=== PATIENT | female | born 1935 | race Caucasian/White ===

== ENCOUNTER 2016-12-29 18:07 | Observation (INO) ==
--- NOTE | 2016-12-29 18:17 | Emergency Department Report ---
Lower Extremity Injury HPI - General Chief Complaint: Extremity Injury, Lower Stated Complaint: r pelvic pain Time Seen by Provider: 12/29/16 18:11 Source: patient, EMS Mode of arrival: EMS Limitations: no limitations - History of Present Illness HPI Narrative: Patient was at the senior care, and she was trying to ambulate from a seated position to her wheelchair, and after 2 steps she became so weak that she couldn 't stand, and fell onto her right side. Patient denies ongoing weakness, stating that she normally is quite weak, but "staff at the senior care and get up to try to help my strength." Patient is complaining now of right lateral and posterior hip pain, but has no deformity of the hip. MD complaint: hip injury - Related Data Home Medications Medication Instructions Recorded Confirmed Doxazosin Mesylate [Cardura] 4 mg PO DAILY #0 09/23/08 12/29/16 Sertraline HCl 100 mg PO DAILY #0 09/23/08 12/29/16 Omeprazole 20 meq PO DAILY #0 09/18/10 12/29/16 Gabapentin 600 mg PO TID #0 05/14/12 12/29/16 Hyoscyamine Sulfate 1 tab PO DAILY #0 05/14/12 12/29/16 Lovastatin 20 mg PO DAILY #0 05/14/12 12/29/16 Pramipexole Di-HCl [Mirapex] 1 tab PO QID #0 05/14/12 12/29/16 Acetaminophen 650 mg PO QID #0 tab 12/08/14 12/29/16 Cholecalciferol (Vitamin D3) 1,000 unit PO DAILY #0 12/08/14 12/29/16 [Vitamin D3] Loratadine 10 mg PO DAILY #0 tab 12/08/14 12/29/16 Multivit-Min/Iron/Folic/Lutein 1 tab PO DAILY #0 12/08/14 12/29/16 [Centrum Silver Women Tablet] Nystatin Cream [Mycostatin] 1 applic TOP DAILY #0 12/08/14 12/29/16 Polyethylene Glycol 3350 [Miralax] 17 g PO DAILY #0 12/08/14 12/29/16 Tramadol HCl 50 mg PO TID #0 tab 12/08/14 12/29/16 Acetaminophen 325 mg PO Q4H PRN 12/29/16 12/29/16 Albuterol Inhaler [Ventolin Hfa 90 2 puff ORAL INH Q4H PRN 12/29/16 12/29/16 mcg/actuation] Bisacodyl Supp [Dulcolax] 10 mg RECTALLY DAILY PRN 12/29/16 12/29/16 CALCIUM CARBONATE Chewable [Tums] 500 mg PO PRN PRN 12/29/16 12/29/16 Carbidopa/Levodopa 25/100 mg 1 tab PO QID 12/29/16 12/29/16 [Sinemet] Fluticasone/Vilanterol Inhaler 1 puff INH HS 12/29/16 12/29/16 [Breo Ellipta 100-25 mcg Inhaler] Guaifenesin/Dextromethorphan 10 ml PO Q4H PRN 12/29/16 12/29/16 [Guaifenesin Dm Syrup] LORazepam [Ativan] 0.5 mg PO DAILY PRN 12/29/16 12/29/16 NIFEdipine [Nifedipine ER] 60 mg PO DAILY 12/29/16 12/29/16 Ondansetron HCl [Zofran] 4 mg PO Q6H PRN 12/29/16 12/29/16 Polyvinyl Alcohol [Artificial 1 drop EACH EYE BID PRN 12/29/16 12/29/16 Tears] Rivaroxaban [Xarelto] 20 mg PO DAILY 12/29/16 12/29/16 Saliva Substitute Combo No.9 1 dose MM BID PRN 12/29/16 12/29/16 [Biotene] Sertraline HCl [Zoloft] 50 mg PO DAILY 12/29/16 12/29/16 Tetrabenazine 12.5 mg PO BID 12/29/16 12/29/16 Tramadol [Ultram] 50 mg PO Q8H PRN 12/29/16 12/29/16 Triamterene/Hydrochlorothiazid 1 tab PO DAILY 12/29/16 12/29/16 [Dyazide 37.5-25 Capsule] Zinc Oxide 1 applic TP PRN PRN 12/29/16 12/29/16 cycloSPORINE [Restasis Multidose] 1 drop EACH EYE BID 12/29/16 12/29/16 Allergies Allergy/AdvReac Type Severity Reaction Status Date / Time naproxen [From Aleve] Allergy Unknown Verified 12/29/16 18:32 Penicillins Allergy Unknown Verified 12/29/16 18:31 propoxyphene Allergy Unknown Verified 12/29/16 18:31 Sulfa (Sulfonamide Allergy Unknown Verified 12/29/16 18:31 Antibiotics) codeine AdvReac Unknown NAUSEA AND Verified 12/29/16 18:31 VOMITING ibuprofen AdvReac Unknown HEARTBURN Verified 12/29/16 18:31 meloxicam AdvReac Unknown HEARTBURN Verified 12/29/16 18:31 sertraline HCl Allergy Unknown Uncoded 12/08/14 16:06 Review of Systems All systems: reviewed and negative except as stated PFSH Patient Stated Medical History Parkinson's Disease Yes Cataracts Yes Hypertension Yes Asthma Yes Bronchitis Yes Gastroesophageal Reflux Yes Disease Osteoarthritis Yes Clinic Medical History Anxiety (Acute Medical) Arthritis (Acute Medical) Asthma (Acute Medical) Chronic back pain (Acute Medical) Dyspepsia (Acute Medical) Fibromyalgia (Acute Medical) Gait abnormality (Acute Medical) HTN (hypertension) (Acute Medical) Heart burn (Acute Medical) Hyperlipidemia (Acute Medical) Lumbosacral spondylolysis (Acute Medical) Memory loss (Acute Medical) Osteoporosis (Acute Medical) Paralysis agitans (Acute Medical) Parkinson disease (Acute Medical) Tremor (Acute Medical) Surgical History: * hysterectomy - 1970. * gall bladder. * appendix. * right ankle. * benugn Tumor removed from ovary Family History: Family History Mother HTN (hypertension) High blood cholesterol Brother HTN (hypertension) - Social History Smoking status: Never smoker Physical Exam - Limitations Limitations: no limitations - General General appearance: alert, obese - Normal Exams: Head:: Normocephalic without trauma Eyes:: Pupils are PERRLA w/ EOMI, No scleral icterus, irritation, or foreign bodies noted ENMT:: No facial trauma, nasal exudates, pharyngeal erythema, or exudates are noted Neck:: Full range of motion, without adenopathy, JVD, bruits or thyromegaly Chest/Respirations:: Clear all gutierrez, with good airflow, and symmetry bilaterally Cardiovascular:: Regular rate and rhythm, without murmur or gallop, Pulses 2+ all extremities, capillary refill, <2 seconds all extremities Abdomen:: Bowel sounds positive, soft, non-tender, non-distended, no hepatosplenomegaly, masses or bruits noted Lymphatic:: No lymphadenopathy, or lymphedema noted Integumentary:: No rashes, hives, or bruising noted, hair and nails, without abnormality Neurological:: Patient is alert, and oriented, cranial nerves, motor/sensory/ cerebellar, exams w/o gross deficits, to observation Psychiatric:: Patient exhibits, appropriate attention, emotion and affect - Expanded Lower Extremity Exam 1 - Moderate diffuse tenderness without contusion or bony deformity 2 - 100 diffuse tenderness without ecchymosis or deformity Course Vital Signs Temperature 97.5 F 12/29/16 18:07 Pulse Rate 53 L 12/29/16 18:07 Respiratory Rate 16 12/29/16 18:07 Blood Pressure 116/58 12/29/16 18:07 Pulse Oximetry 94 12/29/16 18:07 Temperature 97.5 F 12/29/16 18:07 Pulse Rate 45 L 12/29/16 19:50 Respiratory Rate 16 12/29/16 18:07 Blood Pressure 127/65 12/29/16 19:50 Pulse Oximetry 97 12/29/16 19:50 Extremity Injury, Lower - MDM Narrative Medical decision making narrative: Initial x-rays of the pelvis and hip appear normal, however patient is unable to bear weight without significant pain in the posterior right pelvis/S eye region, and right lateral hip. Patient given Dilaudid 0.5 mg IV, CT pelvis/hip - initial read by virtual radiology states "small avulsion fractures arising from the lower aspect of the right pubic bone. ER physician review does not visualize anything on the CT scan that looks like acute fractures in the area of the patient's lateral and posterior pain however. Patient was found to be periodically bradycardic with pulse ranging from 48-61, although the patient was asymptomatic. EKG - shows atrial fibrillation with bradycardic rhythm at 48, quite irregular. CBC - n CMP - n Troponin- n Case discussed with Daniela NICOLE - admitted to Dr. Gamino's service for new onset atrial fibrillation with bradycardia, status post fall with mild ongoing hip pain, pain appears to be controlled with low doses of Dilaudid in the ER. - Lab Data Result diagrams: 12/29/16 18:56 12/29/16 18:56 Lab Results 12/29/16 12/29/16 12/29/16 Range/Units 18:55 18:56 18:56 WBC 8.6 (4.5-11.0) T/MM3 RBC 4.77 (4.00-5.20) M/MM3 Hgb 11.4 L (12-16) GM/DL Hct 37.2 (36-46) % MCV 78.0 L (80-100) UM3 MCH 23.9 L (26-34) UUG MCHC 30.6 L (31-37) GM/DL RDW Std Deviation 47.6 (36.9-50.2) FL Plt Count 243 (130-400) T/MM3 MPV 10.2 (9.4-12.4) UM3 Immature Gran % (Auto) 0.1 (0.0-0.5) % Neut % (Auto) 58.1 (33-66) % Lymph % (Auto) 34.3 (23-45) % Dup[place] % (Auto) 6.2 (0-9.0) % Eos % (Auto) 1.2 (0-4) % Baso % (Auto) 0.1 (0-2) % Neut # 5.0 (1.8-7.7) T/MM3 Lymph # 2.9 (1-4.8) T/MM3 Dupage # 0.5 (0-0.8) T/MM3 Eos # 0.1 (0-0.5) T/MM3 Baso # 0.0 (0-0.2) T/MM3 Abs Immat Gran (auto) 0.01 (0.00-0.03) T/MM3 Turbidity < 20 (0-20) Sodium 143 (134-144) MEQ/L Potassium 4.6 (3.6-5) MEQ/L Chloride 102 (98-107) MEQ/L Carbon Dioxide 30 (22-30) MEQ/L Anion Gap 11 (5-15) MEQ/L BUN 28.0 H (7-17) MG/DL Creatinine 0.8 (0.7-1.2) MG/DL GFR Calculation 69 BUN/Creatinine Ratio 35 H (6-26) RATIO Glucose 87 (65-110) MG/DL Calculated Osmolality 280 (261-280) MOSM/KG Calcium 9.3 (8.4-10.2) MG/DL Total Bilirubin 0.50 (0.20-1.30) MG/DL Conjugated Bilirubin 0.00 (0.00-0.30) MG/DL Unconjugated Bilirubin 0.00 (0.00-11.10) MG/DL Icterus Index < 2 (0-7) AST 22 (14-36) U/L ALT 18 (9-52) U/L Alkaline Phosphatase 57 (38-126) U/L Troponin I < 0.012 (0-0.12) ng/ml Total Protein 7.0 (6.3-8.2) G/DL Albumin 4.3 (3.5-5.0) G/DL Globulin 2.7 (2.4-3.6) G/DL Albumin/Globulin Ratio 1.6 (1.1-2.2) RATIO Specimen Hemolysis < 15 < 15 (0-25) Disposition Clinical Impression: Atrial fibrillation with slow ventricular response Disposition: [facility] [place] Condition: Stable Prescriptions: No Action Lovastatin 20 mg PO DAILY #0 Pramipexole Di-HCl [Mirapex] 1 tab PO QID #0 Multivit-Min/Iron/Folic/Lutein [Centrum Silver Women Tablet] 1 tab PO DAILY # 0 Acetaminophen 650 mg PO QID #0 tab Tramadol HCl 50 mg PO TID #0 tab Cholecalciferol (Vitamin D3) [Vitamin D3] 1,000 unit PO DAILY #0 Nystatin Cream [Mycostatin] 1 applic TOP DAILY #0 Saliva Substitute Combo No.9 [Biotene] 1 dose MM BID PRN PRN Reason: Prn Orders Guaifenesin/Dextromethorphan [Guaifenesin Dm Syrup] 10 ml PO Q4H PRN PRN Reason: Cough Bisacodyl Supp [Dulcolax] 10 mg RECTALLY DAILY PRN PRN Reason: Constipation LORazepam [Ativan] 0.5 mg PO DAILY PRN PRN Reason: Anxiety Ondansetron HCl [Zofran] 4 mg PO Q6H PRN PRN Reason: Nausea Tramadol [Ultram] 50 mg PO Q8H PRN PRN Reason: Pain Acetaminophen 325 mg PO Q4H PRN PRN Reason: Pain Albuterol Inhaler [Ventolin Hfa 90 mcg/actuation] 2 puff ORAL INH Q4H PRN PRN Reason: Shortness Of Air/Wheezing Fluticasone/Vilanterol Inhaler [Breo Ellipta 100-25 mcg Inhaler] 1 puff INH HS cycloSPORINE [Restasis Multidose] 1 drop EACH EYE BID Rivaroxaban [Xarelto] 20 mg PO DAILY NIFEdipine [Nifedipine ER] 60 mg PO DAILY Sertraline HCl [Zoloft] 50 mg PO DAILY Carbidopa/Levodopa 25/100 mg [Sinemet] 1 tab PO QID Zinc Oxide 1 applic TP PRN PRN PRN Reason: Prn Orders Doxazosin Mesylate [Cardura] 4 mg PO DAILY #0 Sertraline HCl 100 mg PO DAILY #0 Omeprazole 20 meq PO DAILY #0 Hyoscyamine Sulfate 1 tab PO DAILY #0 Gabapentin 600 mg PO TID #0 Polyethylene Glycol 3350 [Miralax] 17 g PO DAILY #0 Loratadine 10 mg PO DAILY #0 tab Polyvinyl Alcohol [Artificial Tears] 1 drop EACH EYE BID PRN PRN Reason: Dry Eyes CALCIUM CARBONATE Chewable [Tums] 500 mg PO PRN PRN PRN Reason: Prn Orders Triamterene/Hydrochlorothiazid [Dyazide 37.5-25 Capsule] 1 tab PO DAILY Tetrabenazine 12.5 mg PO BID Referrals: Peter Pollard MD [Family Provider] - - Seen By: physician
[2016-12-29] MEDS ORDERED: HYDROMORPHONE 2 MG/ML INJECTION IVP ONE (18:48)
[2016-12-29] MEDS: SALINE FLUSH 10ml SYRINGE IVF PRN (19:00)
[2016-12-29] MEDS ORDERED: ONDANSETRON 4 MG TABLET PO PRN (21:16)
[2016-12-29] MEDS ORDERED: GUAIFENESIN/DM 5ml ORAL LIQUID PO PRN (21:16)
[2016-12-29] MEDS ORDERED: FALL RISK - PHARMACY CONSULT MC PRN (22:50)
[2016-12-29 22:52] VITALS: BMI 36.6
[2016-12-30] MEDS: ACETAMINOPHEN 325 MG TABLET PO SCH ×5 (00:20→21:21)
--- NOTE | 2016-12-30 07:49 | CT Scan Report ---
EXAM: CT hip RT wo con LOCATION OF DICTATION: [place] HISTORY: right posterior hip and sacral pain after fall COMPARISON: No prior studies available for comparison. TECHNIQUE: Multiple contiguous axial images were obtained of the pelvis and right hip without contrast. Coronal and sagittal reformatted images were utilized. FINDINGS: There is a small sliver of bone demonstrated about the ventral aspect of the right pubic bone which could simply represent a small osteophyte though a small avulsion fracture is not entirely excluded. There is normal and the right hip joint which demonstrates mild osteoarthrosis. No obvious hip fracture deformities. Moderate spondylosis demonstrated in the lower lumbar spine. Visualized abdominal viscera is unremarkable. IMPRESSION: 1. Small linear bone density demonstrated along the ventral aspect of the right pubic bone could represent a small osteophyte though a small avulsion fracture is not entirely excluded. 2. Mild osteoarthrosis the right hip joint and moderate spondylosis of the lower lumbar spine. 3. No evidence for significant malalignment. .
--- NOTE | 2016-12-30 08:07 | XRay Report ---
EXAM: XR pelvis w/ 2 view RT hip LOCATION OF DICTATION: [place] HISTORY: fall, hip pain, right COMPARISON: No prior studies available for comparison. FINDINGS: There is normal alignment of the right and left hip joints. There is no dislocation or subluxation. There is normal osseous mineralization. The ilioischial and iliopectineal lines are intact. The SI joints are well-corticated. Mild/moderate degenerative joint disease about the right and left hip joints. Moderate spondylosis in the lower lumbar spine. IMPRESSION: 1. No malalignment or obvious fracture. Please refer to CT right hip for further discussion. 2. There is mild to moderate osteoarthrosis of the right and left hip joints and moderate spondylosis of the visualized lower lumbar spine. .
[2016-12-30] MEDS: OMEPRAZOLE 20 MG CAPSULE PO SCH (08:30)
[2016-12-30] MEDS: SERTRALINE 100 MG TABLET PO SCH (09:00)
[2016-12-30] MEDS: TRIAMTERENE/HCTZ 37.5 MG-25 MG TABLET PO SCH (09:00)
[2016-12-30] MEDS: SERTRALINE 50 MG TABLET PO SCH (09:00)
[2016-12-30] MEDS ORDERED: RIVAROXABAN 20 MG TABLET PO SCH (09:00)
[2016-12-30] MEDS: HYOSCYAMINE 0.125 MG ORAL TABLET PO SCH (09:00)
[2016-12-30] MEDS: GABAPENTIN 600 MG TABLET PO SCH ×3 (09:00→21:17)
--- NOTE | 2016-12-30 11:50 | Cardiology History & Physical ---
History of Present Illness Chief complaint: pelvic pain HPI: Kiesha is an 81 year old female who is well known to Dr. Chavez with a history of paroxysmal atrial fibrillation, HTN, HLD and Parkinson's disease who was at the senior care and trying to ambulate from a seated position to her wheelchair , and after 2 steps she became so tired that she couldn't stand, and fell onto her right side. She reported that she normally is quite weak, but she was complaining of right lateral and posterior hip pain, but has no deformity of the hip. In the ED initial x-rays of the pelvis and hip appear normal, however patient was unable to bear weight without significant pain in the posterior right pelvis /S eye region, and right lateral hip. CT pelvis/hip read by virtual radiology states "small avulsion fractures arising from the lower aspect of the right pubic bone. ER physician's review does not visualize anything on the CT scan that looks like acute fractures in the area of the patient's lateral and posterior pain however. She was found to be periodically bradycardic with pulse ranging from 48-61, although the patient was asymptomatic. EKG revealed A Fib with slow ventricular rate of 48. She was admitted to Dr. Chavez's service for observation. Review of Systems - Constitutional Constitutional: Present: weakness. Absent: chills, fever(s) - EENMT Eyes: Absent: change in vision Balance: Absent: vertigo Mouth/Throat: Absent: sore throat - Cardiovascular Cardiovascular: Absent: chest pain, palpitations, syncope, dyspnea on exertion, orthopnea - Respiratory Respiratory: Absent: cough, dyspnea, dyspnea on exertion - Gastrointestinal Gastrointestinal: Absent: diarrhea, nausea, vomiting - Genitourinary Genitourinary: Absent: dysuria - Musculoskeletal Musculoskeletal: Present: abnormal gait (parkinson's disease), limited range of motion. Absent: deformity - Integumentary/Breasts Integumentary: Absent: rash - Neurological Neurological: Present: dizziness (at times) - Endocrine Endocrine: Absent: palpitations PFSH Patient Stated Medical History Parkinson's Disease Yes Cataracts Yes Hypertension Yes Asthma Yes Bronchitis Yes Gastroesophageal Reflux Yes Disease Hx Incontinence Yes: stress Osteoarthritis Yes Anesthesia Reactions Yes: Nausea Depression Yes Clinic Medical History Anxiety (Acute Medical) Arthritis (Acute Medical) Asthma (Acute Medical) Chronic back pain (Acute Medical) Dyspepsia (Acute Medical) Fibromyalgia (Acute Medical) Gait abnormality (Acute Medical) HTN (hypertension) (Acute Medical) Heart burn (Acute Medical) Hyperlipidemia (Acute Medical) Lumbosacral spondylolysis (Acute Medical) Memory loss (Acute Medical) Osteoporosis (Acute Medical) Paralysis agitans (Acute Medical) Parkinson disease (Acute Medical) Tremor (Acute Medical) Surgical History: * hysterectomy - 1970. * gall bladder. * appendix. * right ankle. * benugn Tumor removed from ovary Family History: Family History Mother HTN (hypertension) High blood cholesterol Brother HTN (hypertension) - Social History Smoking status: Never smoker Substance use type: does not use Alcohol intake frequency: does not drink Housing: senior care Current occupational status: disabled Current residence: Assisted Medications Home Medications Medication Instructions Recorded Confirmed Type Doxazosin Mesylate [Cardura] 4 mg PO DAILY #0 09/23/08 12/29/16 History Sertraline HCl 100 mg PO DAILY #0 09/23/08 12/29/16 History Omeprazole 20 meq PO DAILY #0 09/18/10 12/29/16 History Gabapentin 600 mg PO TID #0 05/14/12 12/29/16 History Hyoscyamine Sulfate 1 tab PO DAILY #0 05/14/12 12/29/16 History Lovastatin 20 mg PO DAILY #0 05/14/12 12/29/16 History Pramipexole Di-HCl [Mirapex] 1 tab PO QID #0 05/14/12 12/29/16 History Acetaminophen 650 mg PO QID #0 tab 12/08/14 12/29/16 History Cholecalciferol (Vitamin D3) 1,000 unit PO DAILY #0 12/08/14 12/29/16 History [Vitamin D3] Loratadine 10 mg PO DAILY #0 tab 12/08/14 12/29/16 History Multivit-Min/Iron/Folic/Lutein 1 tab PO DAILY #0 12/08/14 12/29/16 History [Centrum Silver Women Tablet] Nystatin Cream [Mycostatin] 1 applic TOP DAILY #0 12/08/14 12/29/16 History Polyethylene Glycol 3350 [Miralax] 17 g PO DAILY #0 12/08/14 12/29/16 History Tramadol HCl 50 mg PO TID #0 tab 12/08/14 12/29/16 History Acetaminophen 325 mg PO Q4H PRN 12/29/16 12/29/16 History Albuterol Inhaler [Ventolin Hfa 90 2 puff ORAL INH Q4H PRN 12/29/16 12/29/16 History mcg/actuation] Bisacodyl Supp [Dulcolax] 10 mg RECTALLY DAILY PRN 12/29/16 12/29/16 History CALCIUM CARBONATE Chewable [Tums] 500 mg PO PRN PRN 12/29/16 12/29/16 History Carbidopa/Levodopa 25/100 mg 1 tab PO QID 12/29/16 12/29/16 History [Sinemet] Fluticasone/Vilanterol Inhaler 1 puff INH HS 12/29/16 12/29/16 History [Breo Ellipta 100-25 mcg Inhaler] Guaifenesin/Dextromethorphan 10 ml PO Q4H PRN 12/29/16 12/29/16 History [Guaifenesin Dm Syrup] LORazepam [Ativan] 0.5 mg PO DAILY PRN 12/29/16 12/29/16 History NIFEdipine [Nifedipine ER] 60 mg PO DAILY 12/29/16 12/29/16 History Ondansetron HCl [Zofran] 4 mg PO Q6H PRN 12/29/16 12/29/16 History Polyvinyl Alcohol [Artificial 1 drop EACH EYE BID PRN 12/29/16 12/29/16 History Tears] Rivaroxaban [Xarelto] 20 mg PO DAILY 12/29/16 12/29/16 History Saliva Substitute Combo No.9 1 dose MM BID PRN 12/29/16 12/29/16 History [Biotene] Sertraline HCl [Zoloft] 50 mg PO DAILY 12/29/16 12/29/16 History Tetrabenazine 12.5 mg PO BID 12/29/16 12/29/16 History Tramadol [Ultram] 50 mg PO Q8H PRN 12/29/16 12/29/16 History Triamterene/Hydrochlorothiazid 1 tab PO DAILY 12/29/16 12/29/16 History [Dyazide 37.5-25 Capsule] Zinc Oxide 1 applic TP PRN PRN 12/29/16 12/29/16 History cycloSPORINE [Restasis Multidose] 1 drop EACH EYE BID 12/29/16 12/29/16 History Allergies Allergy/AdvReac Type Severity Reaction Status Date / Time naproxen [From Aleve] Allergy Unknown Verified 12/29/16 18:32 Penicillins Allergy Unknown Verified 12/29/16 18:31 propoxyphene Allergy Unknown Verified 12/29/16 18:31 Sulfa (Sulfonamide Allergy Unknown Verified 12/29/16 18:31 Antibiotics) codeine AdvReac Unknown NAUSEA AND Verified 12/29/16 18:31 VOMITING ibuprofen AdvReac Unknown HEARTBURN Verified 12/29/16 18:31 meloxicam AdvReac Unknown HEARTBURN Verified 12/29/16 18:31 sertraline HCl Allergy Unknown Uncoded 12/08/14 16:06 Exam Vital signs: Temperature 97 F 12/30/16 07:39 Pulse Rate 56 L 12/30/16 10:16 Respiratory Rate 18 12/30/16 07:39 Blood Pressure 142/66 H 12/30/16 07:39 Pulse Oximetry 96 12/30/16 07:39 Oxygen Delivery Method Room Air,Nasal Cannula Oxygen Flow Rate 2 - Constitutional no acute distress, obese, cooperative - Routine HEENT Exam Head: Present: normocephalic ENT: Present: mucous membranes moist - Routine Neck Exam Absent: JVD, carotid bruit - Routine Chest/Breast/Axilla Exam Chest wall: Absent: tenderness - Routine Respiratory Exam Present: CTA bilaterally. Absent: rales, wheezes - Routine Cardiovascular Exam Present: bradycardia. Absent: murmur (I/), irregular rhythm, JVD - Routine Abdominal Exam Present: soft, normoactive bowel sounds - Routine Extremities Exam Present: edema (calixto LE 2+) - Routine Skin Exam Absent: rash - Routine Neurological Exam Present: alert, oriented X3 - Routine Psychiatric Exam Present: normal affect, normal thought process Results 12/29/16 18:56 12/29/16 18:56 Intake and Output 12/29/16 12/30/16 12/30/16 22:59 06:59 14:59 Intake Total 200 / 200 Output Total 200 / 200 Balance 200 / 200 -200 / -200 Intake: Oral 200 / 200 Output: Urine 200 / 200 Other: # Voids 1 # Bowel Movements 1 Weight 200 lb 6.403 oz 200 lb 9.93 oz Patient Weight 12/31/16 06:59 Weight 200 lb 9.93 oz Laboratory Results - last 48 hr 12/29/16 12/29/16 12/29/16 18:55 18:56 18:56 WBC 8.6 RBC 4.77 Hgb 11.4 L Hct 37.2 MCV 78.0 L MCH 23.9 L MCHC 30.6 L RDW Std Deviation 47.6 Plt Count 243 MPV 10.2 Immature Gran % (Auto) 0.1 Neut % (Auto) 58.1 Lymph % (Auto) 34.3 Pratt % (Auto) 6.2 Eos % (Auto) 1.2 Baso % (Auto) 0.1 Neut # 5.0 Lymph # 2.9 Pratt # 0.5 Eos # 0.1 Baso # 0.0 Abs Immat Gran (auto) 0.01 Turbidity < 20 Sodium 143 Potassium 4.6 Chloride 102 Carbon Dioxide 30 Anion Gap 11 BUN 28.0 H Creatinine 0.8 GFR Calculation 69 BUN/Creatinine Ratio 35 H Glucose 87 Calculated Osmolality 280 Calcium 9.3 Total Bilirubin 0.50 Conjugated Bilirubin 0.00 Unconjugated Bilirubin 0.00 Icterus Index < 2 AST 22 ALT 18 Alkaline Phosphatase 57 Troponin I < 0.012 Total Protein 7.0 Albumin 4.3 Globulin 2.7 Albumin/Globulin Ratio 1.6 Specimen Hemolysis < 15 < 15 Ur Collection Type Urine Color Urine Clarity Urine pH Ur Specific [place] Urine Protein Urine Glucose (UA) Urine Ketones Urine Occult Blood Urine Nitrate Urine Bilirubin Urine Urobilinogen Ur Leukocyte Esterase Urine RBC Urine WBC Urine WBC Clumps Ur Squamous Epith Cells Ur Renal Epithelial Cell Urine Bacteria Ur Culture Indicated? 12/29/16 21:10 WBC RBC Hgb Hct MCV MCH MCHC RDW Std Deviation Plt Count MPV Immature Gran % (Auto) Neut % (Auto) Lymph % (Auto) Pratt % (Auto) Eos % (Auto) Baso % (Auto) Neut # Lymph # Pratt # Eos # Baso # Abs Immat Gran (auto) Turbidity Sodium Potassium Chloride Carbon Dioxide Anion Gap BUN Creatinine GFR Calculation BUN/Creatinine Ratio Glucose Calculated Osmolality Calcium Total Bilirubin Conjugated Bilirubin Unconjugated Bilirubin Icterus Index AST ALT Alkaline Phosphatase Troponin I Total Protein Albumin Globulin Albumin/Globulin Ratio Specimen Hemolysis Ur Collection Type Urine, catheter Urine Color Yellow Urine Clarity Cloudy Urine pH 5.0 Ur Specific [place] 1.025 Urine Protein Negative Urine Glucose (UA) Negative Urine Ketones Trace A Urine Occult Blood Negative Urine Nitrate Positive A Urine Bilirubin Negative Urine Urobilinogen 0.2 Ur Leukocyte Esterase 2+ A Urine RBC 1-3 Urine WBC 10-20 H Urine WBC Clumps Few Ur Squamous Epith Cells 0-5 Ur Renal Epithelial Cell 0-1 Urine Bacteria 4+ H Ur Culture Indicated? Cult reflexed &setup - Imaging and Cardiology EKG results: image reviewed Imaging & Cardiology Narrative: Date of Exam: 12/29/16 Ordering Provider: John Bob MD Type of Exam(s): XR pelvis w/ 2 view RT hip Reason for Exam(s): fall, hip pain, right EXAM: XR pelvis w/ 2 view RT hip LOCATION OF DICTATION: [place] HISTORY: fall, hip pain, right COMPARISON: No prior studies available for comparison. FINDINGS: There is normal alignment of the right and left hip joints. There is no dislocation or subluxation. There is normal osseous mineralization. The ilioischial and iliopectineal lines are intact. The SI joints are well-corticated. Mild/moderate degenerative joint disease about the right and left hip joints. Moderate spondylosis in the lower lumbar spine. IMPRESSION: 1. No malalignment or obvious fracture. Please refer to CT right hip for further discussion. 2. There is mild to moderate osteoarthrosis of the right and left hip joints and moderate spondylosis of the visualized lower lumbar spine. 12/30/16 12:11 12/30/16 12:11 Date of Exam: 12/29/16 Ordering Provider: John Bob MD Type of Exam(s): CT hip RT wo con Reason for Exam(s): right posterior hip and sacral pain after fall EXAM: CT hip RT wo con LOCATION OF DICTATION: [place] HISTORY: right posterior hip and sacral pain after fall COMPARISON: No prior studies available for comparison. TECHNIQUE: Multiple contiguous axial images were obtained of the pelvis and right hip without contrast. Coronal and sagittal reformatted images were utilized. FINDINGS: There is a small sliver of bone demonstrated about the ventral aspect of the right pubic bone which could simply represent a small osteophyte though a small avulsion fracture is not entirely excluded. There is normal and the right hip joint which demonstrates mild osteoarthrosis. No obvious hip fracture deformities. Moderate spondylosis demonstrated in the lower lumbar spine. Visualized abdominal viscera is unremarkable. IMPRESSION: 1. Small linear bone density demonstrated along the ventral aspect of the right pubic bone could represent a small osteophyte though a small avulsion fracture is not entirely excluded. 2. Mild osteoarthrosis the right hip joint and moderate spondylosis of the lower lumbar spine. 3. No evidence for significant malalignment. EKG interpretations - EKG EKG shows: bradycardia, atrial fibrillation - Blocks, axis, hypertrophy, ST abn AV and intraventricular conduction: left bundle branch block (fixed/intermittent , complete/incomplete) Hospital Course This is a general summary of the patient's hospital course. For more details refer to the complete medical record. Time spent with patient: 25 - 35 minutes DVT Prophylaxis: Xarelto Assessment and Plan (1) Juanpablo-tachy syndrome Current visit: Yes Status: Acute Sustained Bradycardia in the 35 range for hours last evening. Is not on BB or other med to cause bradycardia. In addition has a LBBB. Continue to hold Xarelto and plan PPM insertion tomorrow afternoon. (2) Atrial fibrillation with slow ventricular response Current visit: Yes Status: Chronic Rate slow. Chronic anticoagulation on Xarelto, holding for PPM insertion tomorrow afternoon (3) Essential (primary) hypertension Current visit: Yes Status: Chronic well controlled on current therapy (4) Mixed hyperlipidemia Current visit: Yes Status: Acute takes Lovastatin (5) Parkinson disease Current visit: Yes Status: Acute - Attestation Attestation Narrative: 12/31/16 13:40 Recommendation After examining the patient I agree with the above assessment. I am involved in the formulation of the patient's plan of care. Sepsis Assessment - Evaluation Sepsis screening result: No Definite Risk
[2016-12-30] MEDS ORDERED: PNEUMOCOCCAL 13 VACCINE 0.5ml INJECTION IM ONE (15:19)
[2016-12-30] MEDS: TRAMADOL 50 MG TABLET PO SCH ×3 (15:29→21:20)
[2016-12-30] MEDS: PRAMIPEXOLE 1 MG TABLET PO SCH ×4 (15:39→21:18)
[2016-12-30] MEDS: SALINE FLUSH 10ml SYRINGE IVF PRN (21:17)
[2016-12-30] MEDS: LOVASTATIN 20 MG TABLET PO SCH (21:18)
[2016-12-30] MEDS: FLUTICASONE/VILANTEROL 100/25mcg INHALER ORAL INH SCH ×2 (22:09→22:36)
[2016-12-30] MEDS: LORazepam 0.5 MG TABLET PO PRN (22:50)
[2016-12-31] MEDS: OMEPRAZOLE 20 MG CAPSULE PO SCH (05:42)
[2016-12-31] MEDS: TRAMADOL 50 MG TABLET PO SCH ×4 (06:01→20:12)
[2016-12-31] MEDS ORDERED: STERILE WATER FOR INJ 20ML 20 ML ONE (06:54)
[2016-12-31] MEDS ORDERED: SALINE FLUSH 10ml SYRINGE ONE ×2 (06:54→08:05)
[2016-12-31] MEDS ORDERED: BACITRACIN 50,000 UNIT INJECTION ONE (06:55)
[2016-12-31] MEDS ORDERED: LIDOCAINE 1% (10mg/ml) 30ml SDV INJ ONE ×2 (06:55→08:07)
[2016-12-31] MEDS ORDERED: MIDAZOLAM 2mg/2ml INJECTION ONE (07:03)
[2016-12-31] MEDS ORDERED: FentaNYL 100 MCG/2 ML INJECTION ONE (07:03)
[2016-12-31] MEDS ORDERED: ONDANSETRON 4 MG/2 ML INJECTION ONE (07:35)
[2016-12-31] MEDS: PRAMIPEXOLE 1 MG TABLET PO SCH ×4 (10:03→20:13)
[2016-12-31] MEDS: GABAPENTIN 600 MG TABLET PO SCH ×3 (10:03→20:13)
[2016-12-31] MEDS: SERTRALINE 100 MG TABLET PO SCH (10:03)
[2016-12-31] MEDS: TRIAMTERENE/HCTZ 37.5 MG-25 MG TABLET PO SCH (10:03)
[2016-12-31] MEDS: SOTALOL 80 MG TABLET PO SCH ×2 (10:04→17:58)
[2016-12-31] MEDS: HYOSCYAMINE 0.125 MG ORAL TABLET PO SCH (10:07)
[2016-12-31] MEDS: ACETAMINOPHEN 325 MG TABLET PO SCH ×4 (10:10→20:13)
[2016-12-31] MEDS: SERTRALINE 50 MG TABLET PO SCH (10:10)
[2016-12-31] MEDS ORDERED: SALINE FLUSH 10ml SYRINGE IVF PRN (11:45)
--- NOTE | 2016-12-31 12:36 | XRay Report ---
Indication: PPM PROCEDURE: XR chest 1V: Encounter: Initial Comparison: May 14, 2012 Findings: New left dual lead cardiac pacemaker with right atrial and right ventricular leads. No pneumothorax. There is a double density behind the heart which could represent a hiatal hernia or left atrial enlargement. Lungs are otherwise clear. Cardiac silhouette is mildly enlarged but unchanged. Mediastinal contours are stable. Impression: New left cardiac pacemaker without evidence of immediate complication. .
[2016-12-31] MEDS: Oxycodone/Acetaminophen 5/325 1 TAB PO PRN ×2 (16:55→23:51)
[2016-12-31] MEDS: SALINE FLUSH 10ml SYRINGE IVF PRN ×2 (19:17→23:53)
[2016-12-31] MEDS ORDERED: NS FLUSH BAG 500ml IV PRN (19:18)
[2016-12-31] MEDS: LOVASTATIN 20 MG TABLET PO SCH (20:13)
[2016-12-31] MEDS: FLUTICASONE/VILANTEROL 100/25mcg INHALER ORAL INH SCH (21:01)
[2016-12-31] MEDS: CALCIUM CARBONATE Chewable 500mg TABLET PO PRN (21:02)
[2017-01-01] MEDS: LORazepam 0.5 MG TABLET PO PRN (00:23)
[2017-01-01 03:34] VITALS: TEMP 96.9
[2017-01-01] MEDS: Oxycodone/Acetaminophen 5/325 1 TAB PO PRN (04:18)
[2017-01-01] MEDS: SOTALOL 80 MG TABLET PO SCH (05:52)
[2017-01-01] MEDS: OMEPRAZOLE 20 MG CAPSULE PO SCH (05:52)
[2017-01-01 08:11] VITALS: BP 151/73; PULSE 60
[2017-01-01] MEDS: CALCIUM CARBONATE Chewable 500mg TABLET PO PRN (08:16)
--- NOTE | 2017-01-01 08:41 | XRay Report ---
INDICATION: PPM PROCEDURE: CHEST 2-VIEWS UPRIGHT (PA & LAT) Encounter: Initial COMPARISON: December 31, 2016 FINDINGS: Left-sided dual-lead cardiac pacemaker appears stable. No visible pneumothorax. Lungs are unchanged in appearance. Heart size and mediastinal contours are stable. Hiatal hernia. Impression: Stable appearance of the left pacemaker. .
[2017-01-01] MEDS ORDERED: MINOCYCLINE 100 MG CAPSULE PO SCH (09:00)
[2017-01-01] MEDS: TRIAMTERENE/HCTZ 37.5 MG-25 MG TABLET PO SCH (09:10)
[2017-01-01] MEDS: HYOSCYAMINE 0.125 MG ORAL TABLET PO SCH (09:10)
[2017-01-01] MEDS: SERTRALINE 50 MG TABLET PO SCH (09:11)
[2017-01-01] MEDS: TRAMADOL 50 MG TABLET PO SCH ×2 (09:11→14:27)
[2017-01-01] MEDS: PRAMIPEXOLE 1 MG TABLET PO SCH ×2 (09:11→13:27)
[2017-01-01] MEDS: SERTRALINE 100 MG TABLET PO SCH (09:11)
[2017-01-01] MEDS: ACETAMINOPHEN 325 MG TABLET PO SCH ×2 (09:11→13:27)
[2017-01-01] MEDS: GABAPENTIN 600 MG TABLET PO SCH ×2 (09:11→14:27)
--- NOTE | 2017-01-01 10:40 | Discharge Summary ---
<Patti Kruse - Last Filed: 01/01/17 13:26> Discharge Information Date of admission: 12/31/16 11:49 Anticipated date of discharge: 01/01/17 Attending Physician: Phillip Chavez MD Primary care physician: Peter Pollard MD - Discharge Diagnosis Discharge Diagnosis: Juanpablo-tachy syndrome, AFib - Procedures Procedures: Insertion of permanent pacemaker - Laboratory Labs: 01/01/17 04:52 01/01/17 04:52 Laboratory Results - last 48 hr 01/01/17 01/01/17 04:52 04:52 WBC 8.1 RBC 4.61 Hgb 10.8 L Hct 36.5 MCV 79.2 L MCH 23.4 L MCHC 29.6 L RDW Std Deviation 48.2 Plt Count 204 MPV 9.7 Immature Gran % (Auto) 0.2 Neut % (Auto) 73.3 H Lymph % (Auto) 17.2 L [place] % (Auto) 7.4 Eos % (Auto) 1.8 Baso % (Auto) 0.1 Neut # 5.9 Lymph # 1.4 [place] # 0.6 Eos # 0.2 Baso # 0.0 Abs Immat Gran (auto) 0.02 Turbidity < 20 Sodium 140 Potassium 3.8 Chloride 100 Carbon Dioxide 32 H Anion Gap 8 BUN 22.0 H Creatinine 0.8 GFR Calculation 69 BUN/Creatinine Ratio 28 H Glucose 92 Calculated Osmolality 272 Calcium 9.0 Icterus Index < 2 Specimen Hemolysis < 15 Acetaminophen (Tylenol) 650 mg PO QID REPLACED BY [facility] Last Admin: 01/01/17 09:11 Dose: 650 mg Albuterol Sulfate (Ventolin Hfa) 2 puff ORAL INH Q4H PRN PRN Reason: Shortness of air/wheezing Calcium Carbonate (Tums) 500 mg PO PRN PRN PRN Reason: PRN orders Last Admin: 01/01/17 08:16 Dose: 500 mg Carbidopa/Levodopa (Sinemet) 1 tab PO QID REPLACED BY [facility] Last Admin: 01/01/17 09:11 Dose: 1 tab Fluticasone/Vilanterol (Breo Ellipta Inhaler) 1 puff ORAL INH HS REPLACED BY [facility] Last Admin: 12/31/16 21:01 Dose: 1 puff Gabapentin (Neurontin) 600 mg PO TID REPLACED BY [facility] Last Admin: 01/01/17 09:11 Dose: 600 mg Guaifenesin/Dextromethorphan (Robitussin Dm) 10 ml PO Q4H PRN PRN Reason: Cough Hyoscyamine (Levsin) 0.125 mg PO DAILY REPLACED BY [facility] Last Admin: 01/01/17 09:10 Dose: 0.125 mg Lorazepam (Ativan) 0.5 mg PO DAILY PRN PRN Reason: Anxiety Last Admin: 01/01/17 00:23 Dose: 0.5 mg Lovastatin (Mevacor) 20 mg PO HS REPLACED BY [facility] Last Admin: 12/31/16 20:13 Dose: 20 mg Minocycline HCl (Minocin) 100 mg PO BID REPLACED BY [facility] Last Admin: 01/01/17 09:10 Dose: 100 mg Nifedipine (Procardia Xl) 60 mg PO DAILY REPLACED BY [facility] Last Admin: 01/01/17 09:10 Dose: 60 mg Tetrabenazine 12.5 (Mg) 12.5 mg PO BID REPLACED BY [facility] Last Admin: 01/01/17 09:12 Dose: 12.5 mg Omeprazole (Prilosec) 20 mg PO ACB REPLACED BY [facility] Last Admin: 01/01/17 05:52 Dose: 20 mg Ondansetron HCl (Zofran Po) 4 mg PO Q6H PRN PRN Reason: Nausea Oxycodone/Acetaminophen (Percocet 5/325) 1 tab PO Q4H PRN PRN Reason: Pain Last Admin: 01/01/17 04:18 Dose: 1 tab Pramipexole Dihydrochloride (Mirapex) 1.5 mg PO QID REPLACED BY [facility] Last Admin: 01/01/17 09:11 Dose: 1.5 mg Sertraline HCl (Zoloft) 100 mg PO DAILY REPLACED BY [facility] Last Admin: 01/01/17 09:11 Dose: 100 mg Sertraline HCl (Zoloft) 50 mg PO DAILY REPLACED BY [facility] Last Admin: 01/01/17 09:11 Dose: 50 mg Sodium Chloride (Iv Flush) 10 - 80 ml IVF PRN PRN PRN Reason: Flushing Last Admin: 12/31/16 23:53 Dose: 10 ml Sodium Chloride (Iv Flush) 10 - 80 ml IVF PRN PRN PRN Reason: Flushing Sodium Chloride (Normal Saline) 500 ml IV PRN PRN Sotalol HCl (Betapace) 40 mg PO ACBID REPLACED BY [facility] Last Admin: 01/01/17 05:52 Dose: 40 mg Tramadol HCl (Ultram) 50 mg PO TID REPLACED BY [facility] Last Admin: 01/01/17 09:11 Dose: 50 mg Triamterene/HCTZ (Maxzide-25 Eqv) 1 tab PO DAILY NAYELI Last Admin: 01/01/17 09:10 Dose: 1 tab - Radiology Radiology: Date of Exam: 01/01/17 Ordering Provider: Phillip Chavez MD Type of Exam(s): XR chest 2V Reason for Exam(s): PPM INDICATION: PPM PROCEDURE: CHEST 2-VIEWS UPRIGHT (PA & LAT) Encounter: Initial COMPARISON: December 31, 2016 FINDINGS: Left-sided dual-lead cardiac pacemaker appears stable. No visible pneumothorax. Lungs are unchanged in appearance. Heart size and mediastinal contours are stable. Hiatal hernia. Impression: Stable appearance of the left pacemaker. Date of Exam: 12/31/16 Ordering Provider: Phillip Chavez MD Type of Exam(s): XR chest 1V Reason for Exam(s): PPM Indication: PPM PROCEDURE: XR chest 1V: Encounter: Initial Comparison: May 14, 2012 Findings: New left dual lead cardiac pacemaker with right atrial and right ventricular leads. No pneumothorax. There is a double density behind the heart which could represent a hiatal hernia or left atrial enlargement. Lungs are otherwise clear. Cardiac silhouette is mildly enlarged but unchanged. Mediastinal contours are stable. Impression: New left cardiac pacemaker without evidence of immediate complication. History of Present Illness HPI: Kiesha is an 81 year old female who is well known to Dr. Chavez with a history of paroxysmal atrial fibrillation, HTN, HLD and Parkinson's disease who [facility] and trying to ambulate from a seated position to her wheelchair , and after 2 steps she became so tired that she couldn't stand, and fell onto her right side. She reported that she normally is quite weak, but she was complaining of right lateral and posterior hip pain, but has no deformity of the hip. In the ED initial x-rays of the pelvis and hip appear normal, however patient was unable to bear weight without significant pain in the posterior right pelvis /S eye region, and right lateral hip. CT pelvis/hip read by virtual radiology states "small avulsion fractures arising from the lower aspect of the right pubic bone. ER physician's review does not visualize anything on the CT scan that looks like acute fractures in the area of the patient's lateral and posterior pain however. She was found to be periodically bradycardic with pulse ranging from 48-61, although the patient was asymptomatic. EKG revealed A Fib with slow ventricular rate of 48. She was admitted to Dr. Chavez's service for observation. Hospital Course This is a general summary of the patient's hospital course. For more details refer to the complete medical record. Time spent with patient: less than 15 minutes DVT Prophylaxis: Xarelto Exam Vital signs: Temperature 96.9 F 01/01/17 03:33 Pulse Rate 60 01/01/17 08:10 Respiratory Rate 18 01/01/17 08:10 Blood Pressure 151/73 H 01/01/17 08:10 Pulse Oximetry 22 L 01/01/17 08:10 Oxygen Delivery Method Nasal Cannula Oxygen Flow Rate 2 Fraction of Inspired Oxygen 2 - Constitutional no acute distress, obese, cooperative - Routine HEENT Exam Head: Present: normocephalic ENT: Present: mucous membranes moist - Routine Neck Exam Absent: JVD, carotid bruit - Routine Chest/Breast/Axilla Exam Chest wall: Present: pacemaker. Absent: tenderness - Routine Respiratory Exam Present: CTA bilaterally. Absent: rales, wheezes - Routine Cardiovascular Exam Present: RRR, murmur (I/Vi). Absent: JVD - Routine Abdominal Exam Present: soft, normoactive bowel sounds - Routine Extremities Exam Present: edema (2+ bilat.) - Routine Skin Exam Present: intact, dry, warm - Routine Neurological Exam Present: alert, oriented X3 - Routine Psychiatric Exam Present: normal affect, normal thought process Results 01/01/17 04:52 01/01/17 04:52 CBC 01/01/17 Range/Units 04:52 WBC 8.1 (4.5-11.0) T/MM3 RBC 4.61 (4.00-5.20) M/MM3 Hgb 10.8 L (12-16) GM/DL Hct 36.5 (36-46) % Plt Count 204 (130-400) T/MM3 Neut # 5.9 (1.8-7.7) T/MM3 Lymph # 1.4 (1-4.8) T/MM3 [place] # 0.6 (0-0.8) T/MM3 Eos # 0.2 (0-0.5) T/MM3 Baso # 0.0 (0-0.2) T/MM3 Comprehensive Metabolic Panel 01/01/17 Range/Units 04:52 Sodium 140 (134-144) MEQ/L Potassium 3.8 (3.6-5) MEQ/L Chloride 100 (98-107) MEQ/L Carbon Dioxide 32 H (22-30) MEQ/L BUN 22.0 H (7-17) MG/DL Creatinine 0.8 (0.7-1.2) MG/DL Glucose 92 (65-110) MG/DL Calcium 9.0 (8.4-10.2) MG/DL Intake and Output 12/31/16 01/01/17 01/01/17 22:59 06:59 14:59 Intake Total 450 / 450 300 / 300 Output Total 300 / 300 Balance 150 / 150 300 / 300 Intake: IV 250 / 250 Vancocin 1,000 mg In 250 / 250 Normal Saline 250 ml @ 250 mls/hr IV O ONE Rx#: [id number] Oral 200 / 200 300 / 300 Output: Urine 300 / 300 Other: # Voids 1 1 # Incontinent Voids 1 Weight 198 lb 3.129 oz Patient Weight 01/02/17 06:59 Weight 198 lb 3.129 oz - Imaging and Cardiology EKG results: image reviewed - EKG Interpretation EKG: WNL (Atrial paced, QTc 494) Discharge Plan - Med Rec/Dispo Referrals/Follow Up: Phillip Chavez MD [Physician] - 01/09/17 11:30 am (incision check) [place] Instructions: A-fib (Atrial Fibrillation) (GEN), Pacemaker (GEN), Bradycardia (GEN) Prescriptions: New Minocycline [Minocin] 100 mg PO BID #13 capsule Sotalol [Betapace] 40 mg PO ACBID #30 tablet Continue Lovastatin 20 mg PO DAILY #0 Pramipexole Di-HCl [Mirapex] 1 tab PO QID #0 Multivit-Min/Iron/Folic/Lutein [Centrum Silver Women Tablet] 1 tab PO DAILY # 0 Acetaminophen 650 mg PO QID #0 tab Tramadol HCl 50 mg PO TID #0 tab Cholecalciferol (Vitamin D3) [Vitamin D3] 1,000 unit PO DAILY #0 Nystatin Cream [Mycostatin] 1 applic TOP DAILY #0 Saliva Substitute Combo No.9 [Biotene] 1 dose MM BID PRN PRN Reason: Prn Orders Guaifenesin/Dextromethorphan [Guaifenesin Dm Syrup] 10 ml PO Q4H PRN PRN Reason: Cough Bisacodyl Supp [Dulcolax] 10 mg RECTALLY DAILY PRN PRN Reason: Constipation LORazepam [Ativan] 0.5 mg PO DAILY PRN PRN Reason: Anxiety Ondansetron HCl [Zofran] 4 mg PO Q6H PRN PRN Reason: Nausea Tramadol [Ultram] 50 mg PO Q8H PRN PRN Reason: Pain Acetaminophen 325 mg PO Q4H PRN PRN Reason: Pain Albuterol Inhaler [Ventolin Hfa 90 mcg/actuation] 2 puff ORAL INH Q4H PRN PRN Reason: Shortness Of Air/Wheezing Fluticasone/Vilanterol Inhaler [Breo Ellipta 100-25 mcg Inhaler] 1 puff INH HS cycloSPORINE [Restasis Multidose] 1 drop EACH EYE BID Rivaroxaban [Xarelto] 20 mg PO DAILY NIFEdipine [Nifedipine ER] 60 mg PO DAILY Sertraline HCl [Zoloft] 50 mg PO DAILY Carbidopa/Levodopa 25/100 mg [Sinemet] 1 tab PO QID Zinc Oxide 1 applic TP PRN PRN PRN Reason: Prn Orders Doxazosin Mesylate [Cardura] 4 mg PO DAILY #0 Sertraline HCl 100 mg PO DAILY #0 Omeprazole 20 meq PO DAILY #0 Hyoscyamine Sulfate 1 tab PO DAILY #0 Gabapentin 600 mg PO TID #0 Polyethylene Glycol 3350 [Miralax] 17 g PO DAILY #0 Loratadine 10 mg PO DAILY #0 tab Polyvinyl Alcohol [Artificial Tears] 1 drop EACH EYE BID PRN PRN Reason: Dry Eyes CALCIUM CARBONATE Chewable [Tums] 500 mg PO PRN PRN PRN Reason: Prn Orders Triamterene/Hydrochlorothiazid [Dyazide 37.5-25 Capsule] 1 tab PO DAILY Tetrabenazine 12.5 mg PO BID <Phillip Chavez - Last Filed: 01/06/17 17:13> Discharge Information Date of admission: 12/29/16 20:21 Attending Physician: Phillip Chavez MD Primary care physician: Peter Pollard MD - Laboratory Labs: 01/01/17 04:52 01/01/17 04:52 - Microbiology Microbiology 12/29/16 21:12 Urine, Cath Straight Urine Culture - Final Escherichia coli, ESBL Hospital Course This is a general summary of the patient's hospital course. For more details refer to the complete medical record. Exam Vital signs: Temperature 96.9 F 01/01/17 03:33 Pulse Rate 60 01/01/17 08:10 Respiratory Rate 22 01/01/17 08:10 Blood Pressure 151/73 H 01/01/17 08:10 Pulse Oximetry 96 01/01/17 09:10 Oxygen Delivery Method Nasal Cannula Oxygen Flow Rate 1 Fraction of Inspired Oxygen 2 Results 01/01/17 04:52 01/01/17 04:52 Discharge Plan - Med Rec/Dispo - Attestation Attestation Narrative: 01/06/17 17:12 Recommendation After examining the patient I agree with the above assessment. I am involved in the formulation of the patient's plan of care.
[2017-01-01 11:39] VITALS: O2SAT 96
[2017-01-01 11:40] VITALS: RESP 22
--- NOTE | 2017-01-01 13:27 | Extended Care Facility Orders ---
<Patti Kruse - Last Filed: 01/01/17 13:27> Admission Orders Admit to:: [facility] Allergies/Adverse Reactions: Allergies naproxen [From Aleve] Allergy (Unknown, Verified 12/29/16 18:32) Penicillins Allergy (Unknown, Verified 12/29/16 18:31) propoxyphene Allergy (Unknown, Verified 12/29/16 18:31) Sulfa (Sulfonamide Antibiotics) Allergy (Unknown, Verified 12/29/16 18:31) codeine Adverse Reaction (Unknown, Verified 12/29/16 18:31) NAUSEA AND VOMITING ibuprofen Adverse Reaction (Unknown, Verified 12/29/16 18:31) HEARTBURN meloxicam Adverse Reaction (Unknown, Verified 12/29/16 18:31) HEARTBURN sertraline HCl Allergy (Unknown, Uncoded 12/08/14 16:06) Admitting Diagnosis: a-fib with bradycardia Admitting Physician: Phillip Chavez MD Attending Physician: Phillip Chavez MD Anticiapted Length of Stay: greater than 30 days Rehab Potential: fair Rehab Prognosis: fair Diet: 01/01/17 Breakfast Regular Diet [DIET] Diet Modifications: Long-Term Certification: I certify that SNF services are required to be given on an Inpatient basis because of the patients need for usp care on a continuing basis for the condition(s) for which he/she received inpatient hospital services prior to his/her transfer to the SNF. SNF inpatient care is necessary for the following reasons Indication for Long-Term: Not Applicable - Additional Information Referrals: Phillip Chavez MD [Physician] - 01/09/17 11:30 am (incision check) <Phillip Chavez - Last Filed: 01/02/17 14:48> Admission Orders Admitting Diagnosis: a-fib with bradycardia Admitting Physician: Phillip Chavez MD Attending Physician: Phillip Chavez MD Long-Term Certification: I certify that SNF services are required to be given on an Inpatient basis because of the patients need for [facility] care on a continuing basis for the condition(s) for which he/she received inpatient hospital services prior to his/her transfer to the SNF. SNF inpatient care is necessary for the following reasons
== END 2017-01-01 14:30 ==
LOC: ED 18:07 → MED 18:07
PROVIDERS: ADMIT Internal Medicine Cardiovascular Disease; ATTEND Internal Medicine Cardiovascular Disease

== ENCOUNTER 2017-04-13 10:04 | Inpatient (IN) ==
[2017-04-13] MEDS ORDERED: ACETAMINOPHEN 325 MG SUPPOSITORY PR ONE (10:13)
[2017-04-13] MEDS ORDERED: NS 1,000 ML IV ONE (10:13)
--- NOTE | 2017-04-13 10:20 | Emergency Department Report ---
Fever HPI - General Stated Complaint: Lethargic Time Seen by Provider: 04/13/17 10:12 Source: patient, EMS Mode of arrival: EMS - History of Present Illness HPI Narrative: 81 YO F brought to ED via [facility] from [facility] with report of fever of 104.2, crackles in bases, refusing medications and breakfast today. Patient say she began to feel bad around 0300 this morning with chills. Patient was given 650mg of Tylenol at [facility] prior to transport. SpO2 in mid 80%. Patient is not normal on oxygen. Patient placed on 2 L/NC of O2. MD complaint: fever, malaise - Related Data Home Medications Medication Instructions Recorded Confirmed Doxazosin Mesylate [Cardura] 4 mg PO DAILY #0 09/23/08 04/13/17 Sertraline HCl 100 mg PO DAILY #0 09/23/08 04/13/17 Omeprazole 20 meq PO DAILY #0 09/18/10 04/13/17 Gabapentin 600 mg PO TID #0 05/14/12 04/13/17 Hyoscyamine Sulfate 0.125 mg PO DAILY #0 05/14/12 04/13/17 Lovastatin 20 mg PO DAILY #0 05/14/12 04/13/17 Pramipexole Di-HCl [Mirapex] 1 tab PO QID #0 05/14/12 04/13/17 Acetaminophen 650 mg PO QID #0 tab 12/08/14 04/13/17 Cholecalciferol (Vitamin D3) 1,000 unit PO DAILY #0 12/08/14 04/13/17 [Vitamin D3] Loratadine 10 mg PO DAILY #0 tab 12/08/14 04/13/17 Multivit-Min/Iron/Folic/Lutein 1 tab PO DAILY #0 12/08/14 04/13/17 [Centrum Silver Women Tablet] Nystatin Cream [Mycostatin] 1 applicatio TOP DAILY #0 12/08/14 04/13/17 Polyethylene Glycol 3350 [Miralax] 17 g PO DAILY #0 12/08/14 04/13/17 Tramadol HCl 50 mg PO TID #0 tab 12/08/14 04/13/17 Acetaminophen 325 mg PO Q4H PRN 12/29/16 04/13/17 Albuterol HFA Inhaler [Ventolin 2 puff ORAL INH Q4H PRN 12/29/16 04/13/17 Hfa 90 mcg/actuation] Bisacodyl Supp [Dulcolax] 10 mg RECTALLY DAILY PRN 12/29/16 04/13/17 CALCIUM CARBONATE Chewable [Tums] 500 mg PO PRN PRN 12/29/16 04/13/17 Carbidopa/Levodopa 25/100 MG 1 tab PO QID 12/29/16 04/13/17 [Sinemet] Fluticasone/Vilanterol Inhaler 1 puff INH HS 12/29/16 04/13/17 [Breo Ellipta 100-25 mcg Inhaler] Guaifenesin/Dextromethorphan 10 ml PO Q4H PRN 12/29/16 04/13/17 [Guaifenesin Dm Syrup] NIFEdipine [Nifedipine ER] 60 mg PO DAILY 12/29/16 04/13/17 Ondansetron HCl [Zofran] 4 mg PO Q6H PRN 12/29/16 04/13/17 Rivaroxaban [Xarelto] 20 mg PO DAILY 12/29/16 04/13/17 Sertraline HCl [Zoloft] 50 mg PO DAILY 12/29/16 04/13/17 Tramadol [Ultram] 50 mg PO Q8H PRN 12/29/16 04/13/17 Triamterene/Hydrochlorothiazid 1 tab PO DAILY 12/29/16 04/13/17 [Dyazide 37.5-25 Capsule] Zinc Oxide 1 applicatio TP PRN PRN 12/29/16 04/13/17 cycloSPORINE [Restasis Multidose] 1 drop EACH EYE BID 12/29/16 04/13/17 Hydrocortisone 2.5% Cream 1 applicatio RECTALLY BID PRN 04/13/17 04/13/17 [Anusol-Hc 2.5% Cream] Peg 400/Hypromellose/Glycerin 1 drop OP BID 04/13/17 04/13/17 [Artificial Tears Drops] Saliva Substitute Mouthwash 1 dose PO BID PRN 04/13/17 04/13/17 [Biotene Dry Mouth Oral Rinse] Valbenazine Tosylate [Ingrezza] 80 mg PO DAILY 04/13/17 04/13/17 cycloSPORINE [Restasis Multidose] 1 drops EACH EYE BID 04/13/17 04/13/17 Previous Rx's Medication Instructions Recorded Sotalol [Betapace] 40 mg PO ACBID #30 tab 01/01/17 Allergies Allergy/AdvReac Type Severity Reaction Status Date / Time naproxen [From Aleve] Allergy Unknown Verified 04/13/17 10:18 Penicillins Allergy Unknown Verified 04/13/17 10:18 propoxyphene Allergy Unknown Verified 04/13/17 10:18 Sulfa (Sulfonamide Allergy Unknown Verified 04/13/17 10:18 Antibiotics) codeine AdvReac Unknown NAUSEA AND Verified 04/13/17 10:18 VOMITING ibuprofen AdvReac Unknown HEARTBURN Verified 04/13/17 10:18 meloxicam AdvReac Unknown HEARTBURN Verified 04/13/17 10:18 sertraline HCl Allergy Unknown Uncoded 03/11/17 09:56 Review of Systems All systems: reviewed and negative except as stated Constitutional: Reports: as per HPI, fever, chills Respiratory: Reports: as per HPI, dyspnea PFSH Patient Stated Medical History Parkinson's Disease Yes Cataracts Yes Dysphagia Yes Other HEENT Yes: 'DISTURBANCE OF SALIVARY SECRETIONS' Hypertension Yes Asthma Yes Bronchitis Yes Pneumonia Yes Gastroesophageal Reflux Yes Disease Other GI Yes: IBS Hx Incontinence Yes: stress Other Yes: OVERACTIVE BLADDER Anemia Yes Osteoarthritis Yes Other Musculoskeletal Yes: SPONDYLOLYSIS, RADICULOPATHY THORACOLUMBAR Anesthesia Reactions Yes: Nausea Depression Yes Clinic Medical History (Last Reviewed 03/11/17 @ 09:57 by Vu Nguyen MA) Atrial fibrillation with slow ventricular response (Chronic Medical) Juanpablo-tachy syndrome (Acute Medical) Essential (primary) hypertension (Chronic Medical) Mixed hyperlipidemia (Acute Medical) Parkinson disease (Acute Medical) UTI (urinary tract infection) (Acute Medical) Febrile illness (Acute Medical) Anxiety (Acute Medical) Arthritis (Acute Medical) Asthma (Acute Medical) Chronic back pain (Acute Medical) Dyspepsia (Acute Medical) Fibromyalgia (Acute Medical) Gait abnormality (Acute Medical) HTN (hypertension) (Acute Medical) Heart burn (Acute Medical) Hyperlipidemia (Acute Medical) Lumbosacral spondylolysis (Acute Medical) Memory loss (Acute Medical) Osteoporosis (Acute Medical) Paralysis agitans (Acute Medical) Parkinson disease (Acute Medical) Tremor (Acute Medical) Surgical History: * Pacemaker placement 12/2016. * hysterectomy - 1970. * gall bladder. * appendix. * right ankle. * benugn Tumor removed from ovary Family History: Family History (Last Reviewed 03/11/17 @ 09:57 by Vu Nguyen MA) Mother HTN (hypertension) High blood cholesterol Brother HTN (hypertension) - Social History Smoking status: Never smoker [facility]: [facility] Physical Exam - General General appearance: alert - Normal Exams: Head:: Normocephalic without trauma Eyes:: No scleral icterus, irritation ENMT:: No facial trauma, nasal exudates, pharyngeal erythema, or exudates are noted Neck:: Full range of motion, without adenopathy, JVD Musculoskeletal:: No tenderness Neurological:: Patient is alert, and oriented Psychiatric:: Patient exhibits, appropriate attention, emotion and affect - Respiratory Respiratory exam: Present: other (RR 27/min), crackles (in bilateral bases, decreased throughout bilt.) - Cardiovascular Cardiovascular exam: Present: regular rate (82 bpm), normal rhythm - Abdominal Exam Abdominal exam: Present: soft, hypoactive bowel sounds (x4). Absent: distention , tenderness, guarding - Extremities Exam Extremities exam: Present: pedal edema (1+ bilt.) - Skin Skin exam: Present: warm, dry Course - Consultations Consultation #1: I discussed patient's HPI, PMH, labs, VS, CXR, exam findings, treatment in the ED with Dr. Alex. Dr. Alex will admit inpatient and would like patient started on Invanz. Vital Signs Temperature 103.1 F H 04/13/17 10:04 Pulse Rate 87 04/13/17 10:04 Respiratory Rate 28 H 04/13/17 10:04 Blood Pressure 178/79 H 04/13/17 10:04 Pulse Oximetry 97 04/13/17 10:04 Temperature 96.7 F L 04/16/17 16:30 Pulse Rate 60 04/16/17 19:34 Respiratory Rate 16 04/16/17 19:33 Blood Pressure 155/72 H 04/16/17 19:34 Pulse Oximetry 99 04/16/17 19:34 Fever - MDM Narrative Medical decision making narrative: WBC 10.7 with 3% bands Lactate 2.0 Procalcitonin <0.05 Urine positive for nitrates, trace LE, WBC 10-20, 4+ bacteria (this was a catheterized specimen) Other labs unremarkable Patient has improving VS with IV fluids and albuterol treatment. Previous micro on UA cultures have show resistance to most antibiotic Patient does not know what penicillin does to her however states it did not cause breathing problems or swelling of face, mucus membranes. I discussed need for admission due prior antibiotic resistance and need for IV antibiotics for UTI. Patient and her family agree with with admission to hospital. - Differential Diagnosis Likely: community acquired pneumonia, pyelonephritis (UTI), viral infection, sepsis, influenza - Medical Records Attestation: I reviewed the patient's medical records. - Lab Data Attestation: I reviewed the patient's lab results. Result diagrams: 04/16/17 04:42 04/16/17 04:42 Lab Results 04/13/17 04/13/17 04/13/17 Range/Units 10:36 10:36 10:37 WBC 10.7 (4.5-11.0) T/MM3 RBC 4.67 (4.00-5.20) M/MM3 Hgb 11.2 L (12-16) GM/DL Hct 36.4 (36-46) % MCV 77.9 L (80-100) UM3 MCH 24.0 L (26-34) UUG MCHC 30.8 L (31-37) GM/DL RDW Std Deviation 44.4 (36.9-50.2) FL Plt Count 174 (130-400) T/MM3 MPV 9.6 (9.4-12.4) UM3 Immature Gran % (Auto) Not performed Neut % (Auto) Not performed Lymph % (Auto) Not performed [place] % (Auto) Not performed Eos % (Auto) Not performed Baso % (Auto) Not performed Neut # (Auto) Not performed Lymph # (Auto) Not performed [place] # (Auto) Not performed Eos # (Auto) Not performed Baso # (Auto) Not performed Abs Immat Gran (auto) Not performed Neutrophils % (Manual) 86.0 H (33-66) % Band Neutrophils % 3.0 (0-6) % Lymphocytes % (Manual) 4.0 L (23-45) % Monocytes % (Manual) 7.0 (0-9.0) % Neutrophils # (Manual) 9.2 H (1.8-7.7) T/MM3 Band Neutrophils # 0.3 T/MM3 Lymphocytes # (Manual) 0.4 L (1-4.8) T/MM3 Monocytes # (Manual) 0.7 (0-0.8) T/MM3 RBC Morph Comment Normal Turbidity < 20 (0-20) Sodium 143 (134-144) MEQ/L Potassium 3.9 (3.6-5) MEQ/L Chloride 100 (98-107) MEQ/L Carbon Dioxide 29 (22-30) MEQ/L Anion Gap 14 (5-15) MEQ/L BUN 22.0 H (7-17) MG/DL Creatinine 0.6 L (0.7-1.2) MG/DL GFR Calculation 96 BUN/Creatinine Ratio 37 H (6-26) RATIO Glucose 105 (65-110) MG/DL Calculated Osmolality 278 (261-280) MOSM/KG Calcium 8.8 (8.4-10.2) MG/DL Total Bilirubin 0.60 (0.20-1.30) MG/DL Icterus Index < 2 (0-7) AST 25 (14-36) U/L ALT 20 (9-52) U/L Alkaline Phosphatase 44 (38-126) U/L Total Protein 7.3 (6.3-8.2) G/DL Albumin 4.0 (3.5-5.0) G/DL Globulin 3.3 (2.4-3.6) G/DL Albumin/Globulin Ratio 1.2 (1.1-2.2) RATIO Plasma Lactate 2.0 (0.6-2.2) MMOL/L Procalcitonin < 0.05 NG/ML Specimen Hemolysis < 15 (0-25) Ur Collection Type Urine Color (YELLOW) Urine Clarity Urine pH (5.0-8.0) Ur Specific [place] (1.015-1.025) Urine Protein (NEGATIVE) Urine Glucose (UA) (NEGATIVE) Urine Ketones (NEGATIVE) Urine Occult Blood (NEGATIVE) Urine Nitrate (NEGATIVE) Urine Bilirubin (NEGATIVE) Urine Urobilinogen (NORMAL) EU/DL Ur Leukocyte Esterase (NEGATIVE) Urine RBC (0-3) /HPF Urine WBC (0-5) /HPF Urine Bacteria (NEGATIVE) Ur Culture Indicated? Influenza Type A (PCR) (Negative) Influenza Type B (PCR) (Negative) 04/13/17 04/13/17 Range/Units 10:47 11:23 WBC (4.5-11.0) T/MM3 RBC (4.00-5.20) M/MM3 Hgb (12-16) GM/DL Hct (36-46) % MCV (80-100) UM3 MCH (26-34) UUG MCHC (31-37) GM/DL RDW Std Deviation (36.9-50.2) FL Plt Count (130-400) T/MM3 MPV (9.4-12.4) UM3 Immature Gran % (Auto) Neut % (Auto) Lymph % (Auto) [place] % (Auto) Eos % (Auto) Baso % (Auto) Neut # (Auto) Lymph # (Auto) [place] # (Auto) Eos # (Auto) Baso # (Auto) Abs Immat Gran (auto) Neutrophils % (Manual) (33-66) % Band Neutrophils % (0-6) % Lymphocytes % (Manual) (23-45) % Monocytes % (Manual) (0-9.0) % Neutrophils # (Manual) (1.8-7.7) T/MM3 Band Neutrophils # T/MM3 Lymphocytes # (Manual) (1-4.8) T/MM3 Monocytes # (Manual) (0-0.8) T/MM3 RBC Morph Comment Turbidity (0-20) Sodium (134-144) MEQ/L Potassium (3.6-5) MEQ/L Chloride (98-107) MEQ/L Carbon Dioxide (22-30) MEQ/L Anion Gap (5-15) MEQ/L BUN (7-17) MG/DL Creatinine (0.7-1.2) MG/DL GFR Calculation BUN/Creatinine Ratio (6-26) RATIO Glucose (65-110) MG/DL Calculated Osmolality (261-280) MOSM/KG Calcium (8.4-10.2) MG/DL Total Bilirubin (0.20-1.30) MG/DL Icterus Index (0-7) AST (14-36) U/L ALT (9-52) U/L Alkaline Phosphatase (38-126) U/L Total Protein (6.3-8.2) G/DL Albumin (3.5-5.0) G/DL Globulin (2.4-3.6) G/DL Albumin/Globulin Ratio (1.1-2.2) RATIO Plasma Lactate (0.6-2.2) MMOL/L Procalcitonin NG/ML Specimen Hemolysis (0-25) Ur Collection Type Urine, catheter Urine Color Yellow (YELLOW) Urine Clarity Sl cloudy Urine pH 6.5 (5.0-8.0) Ur Specific [place] 1.015 (1.015-1.025) Urine Protein Negative (NEGATIVE) Urine Glucose (UA) Negative (NEGATIVE) Urine Ketones Negative (NEGATIVE) Urine Occult Blood Trace-intact (NEGATIVE) Urine Nitrate Positive A (NEGATIVE) Urine Bilirubin Negative (NEGATIVE) Urine Urobilinogen 0.2 (NORMAL) EU/DL Ur Leukocyte Esterase Trace A (NEGATIVE) Urine RBC None seen (0-3) /HPF Urine WBC 10-20 H (0-5) /HPF Urine Bacteria 4+ H (NEGATIVE) Ur Culture Indicated? Cult reflexed &setup Influenza Type A (PCR) Negative (Negative) Influenza Type B (PCR) Negative (Negative) - Radiology Data Attestation: I reviewed the patient's radiology results. Disposition Clinical Impression: UTI (urinary tract infection) Qualifiers: Urinary tract infection type: site unspecified Hematuria presence: without hematuria Qualified Code(s): N39.0 - Urinary tract infection, site not specified Disposition: To [facility] [place] Condition: Stable - Seen By: midlevel
--- NOTE | 2017-04-13 11:25 | XRay Report ---
INDICATION: fever, crackles PROCEDURE: CHEST 2-VIEWS UPRIGHT (PA & LAT) Encounter: Initial Comparison: January 01, 2017 Findings: The lungs are stable in appearance without new focal airspace consolidation. There is no pleural effusion or pneumothorax. The heart size, pulmonary vascularity and mediastinal contours are unchanged. Left pacemaker. Hiatal hernia. IMPRESSION: Stable appearance of the chest without acute cardiopulmonary disease. .
[2017-04-13] MEDS ORDERED: LEVOFLOXACIN 500 MG TABLET PO ONE (11:54)
[2017-04-13] MEDS ORDERED: ERTAPENEM 1 G in NS 100 ML IV ONE (12:19)
[2017-04-13] MEDS: SALINE FLUSH 10ml SYRINGE IVF PRN (12:28)
[2017-04-13] MEDS ORDERED: ONDANSETRON 4 MG/2 ML INJECTION IVP PRN (13:22)
[2017-04-13] MEDS ORDERED: ALBUTEROL/IPRATROPIUM 2.5mg-0.5mg/3ml NEB AEROSOL PRN (13:22)
[2017-04-13 13:35] VITALS: BMI 36.8
[2017-04-13] MEDS ORDERED: BISACODYL 10 MG SUPPOSITORY RECTALLY PRN (14:11)
[2017-04-13] MEDS ORDERED: SALIVA SUBSTITUTE MOUTHWASH 237ml PO PRN (14:11)
[2017-04-13] MEDS ORDERED: TRAMADOL 50 MG TABLET PO PRN (14:11)
[2017-04-13] MEDS ORDERED: ACETAMINOPHEN 325 MG TABLET PO PRN (14:11)
[2017-04-13] MEDS ORDERED: GUAIFENESIN/DM 5ml ORAL LIQUID PO PRN (14:11)
[2017-04-13] MEDS ORDERED: CALCIUM CARBONATE Chewable 500mg TABLET PO PRN (14:11)
[2017-04-13] MEDS: NS 1,000 ML IV SCH (14:14)
--- NOTE | 2017-04-13 14:35 | History & Physical Report ---
History of Present Illness Date: 04/13/17 Chief complaint: Weakness, chills HPI: 81 y/o female resides at [facility] presents to [facility] ED via EMS secondary to weakness and chills. Symptoms onset this morning about 3am. Started to feel very chilled-couldn't get warm. Yesterday was feeling okay-had a 'big day' in that she helped with a sale (has some worry that she 'over did it' yesterday. More tired and weak this morning. Not able to take her morning medications or have breakfast. Nursing found temp elevation (104) and low oxygen saturations ( mid 80s; will intermittently need O2 for her asthma, but not typically). Patient less interactive and responsive than baseline. Given Tylenol and EMS activated; transported to [facility] ED for evaluation. Initial temperature 103.1. Respiratory rate increased at 28. On 3L O2 with saturations 97%. While in ED, given IVF and rectal Tylenol which helped decrease temp and her chills. Lab showing WBC at upper limits of normal (10.7) with shift - 86% polys and 3% bands. Lactate 2.0. Blood pressure preserved. CXR obtained not showing acute infiltrate. Influenza screen negative. Urine showing evidence of urinary infection - reviewed her 2 prior urine culture reveals resistant E coli. With acute hypoxia/respiratory insufficiency, temp elevation, elevated lactate ( giving concern for developing sepsis) and underlying UTI with recent history of resistant organism decision was made to admit patient to inpatient status for treatment. Will need IV antibiotics to cover suspected resistant organism (no viable oral option available) and IVF for support, coupled with close monitoring due to concern for developing sepsis. Anticipated length of stay is thought to be greater than 2 midnights. Review of Systems - Constitutional Constitutional: Present: chills, fever(s), increased appetite, lethargy, malaise - EENMT Eyes: Absent: change in vision, diplopia, loss of vision Ears: Absent: ear pain, tinnitus Nose: Present: allergies Mouth/Throat: Absent: pain, sore throat, changes in swallowing, painful swallowing, change in voice - Cardiovascular Cardiovascular: Present: edema (Chronic, no acute change ). Absent: chest pain , palpitations - Respiratory Respiratory: Present: wheezing, chest congestion. Absent: cough - Gastrointestinal Gastrointestinal: Absent: abdominal pain, diarrhea, dyspepsia, dysphagia, nausea - Genitourinary Genitourinary: Present: dysuria. Absent: flank pain - Musculoskeletal Musculoskeletal: Present: myalgias. Absent: muscle cramps - Integumentary/Breasts Integumentary: Absent: pruritus, rash - Neurological Neurological: Present: abnormal gait (Chronic gait instability). Absent: focal weakness, headache(s), loss of vision - Psychiatric Psychiatric: Absent: auditory hallucinations, mood swings - Allergic/Immunologic Allergic/Immunologic: Present: seasonal rhinorrhea. Absent: lip swelling PFSH Patient Stated Medical History Parkinson's Disease Yes Cataracts Yes Dysphagia Yes Other HEENT Yes: 'DISTURBANCE OF SALIVARY SECRETIONS' Hypertension Yes Asthma Yes Bronchitis Yes Pneumonia Yes Gastroesophageal Reflux Yes Disease Other GI Yes: IBS Hx Incontinence Yes: stress Other Yes: OVERACTIVE BLADDER Anemia Yes Osteoarthritis Yes Other Musculoskeletal Yes: SPONDYLOLYSIS, RADICULOPATHY THORACOLUMBAR Anesthesia Reactions Yes: Nausea Depression Yes Clinic Medical History (Last Reviewed 03/11/17 @ 09:57 by Vu Nguyen MA) Atrial fibrillation with slow ventricular response (Chronic Medical) Juanpablo-tachy syndrome (Acute Medical) Essential (primary) hypertension (Chronic Medical) Mixed hyperlipidemia (Acute Medical) Parkinson disease (Acute Medical) UTI (urinary tract infection) (Acute Medical) Anxiety (Acute Medical) Arthritis (Acute Medical) Asthma (Acute Medical) Chronic back pain (Acute Medical) Dyspepsia (Acute Medical) Fibromyalgia (Acute Medical) Gait abnormality (Acute Medical) HTN (hypertension) (Acute Medical) Heart burn (Acute Medical) Hyperlipidemia (Acute Medical) Lumbosacral spondylolysis (Acute Medical) Memory loss (Acute Medical) Osteoporosis (Acute Medical) Paralysis agitans (Acute Medical) Parkinson disease (Acute Medical) Tremor (Acute Medical) Surgical History: * Pacemaker placement 12/2016. * hysterectomy - 1969. * gall bladder. * appendix. * right ankle. * benugn Tumor removed from ovary Family History: Family History (Last Reviewed 03/11/17 @ 09:57 by Vu Nguyen MA) Mother HTN (hypertension) High blood cholesterol Brother HTN (hypertension) - Social History Smoking status: Never smoker Alcohol intake frequency: does not drink Housing: halfway Current occupational status: retired Current residence: [place] Social history: Dr Pollard PCP Medications Home Medications Medication Instructions Recorded Confirmed Type Doxazosin Mesylate [Cardura] 4 mg PO DAILY #0 05/15/09 12/03/17 History Sertraline HCl 100 mg PO DAILY #0 09/23/08 04/13/17 History Omeprazole 20 meq PO DAILY #0 09/18/10 04/13/17 History Gabapentin 600 mg PO TID #0 05/14/12 04/13/17 History Hyoscyamine Sulfate 0.125 mg PO DAILY #0 05/14/12 04/13/17 History Lovastatin 20 mg PO DAILY #0 05/14/12 04/13/17 History Pramipexole Di-HCl [Mirapex] 1 tab PO QID #0 05/14/12 04/13/17 History Acetaminophen 650 mg PO QID #0 tab 12/08/14 04/13/17 History Cholecalciferol (Vitamin D3) 1,000 unit PO DAILY #0 12/08/14 04/13/17 History [Vitamin D3] Loratadine 10 mg PO DAILY #0 tab 12/08/14 04/13/17 History Multivit-Min/Iron/Folic/Lutein 1 tab PO DAILY #0 12/08/14 04/13/17 History [Centrum Silver Women Tablet] Nystatin Cream [Mycostatin] 1 applicatio TOP DAILY #0 12/08/14 04/13/17 History Polyethylene Glycol 3350 [Miralax] 17 g PO DAILY #0 12/08/14 04/13/17 History Tramadol HCl 50 mg PO TID #0 tab 12/08/14 04/13/17 History Acetaminophen 325 mg PO Q4H PRN 12/29/16 04/13/17 History Albuterol HFA Inhaler [Ventolin 2 puff ORAL INH Q4H PRN 12/29/16 04/13/17 History Hfa 90 mcg/actuation] Bisacodyl Supp [Dulcolax] 10 mg RECTALLY DAILY PRN 12/29/16 04/13/17 History CALCIUM CARBONATE Chewable [Tums] 500 mg PO PRN PRN 12/29/16 04/13/17 History Carbidopa/Levodopa 25/100 MG 1 tab PO QID 12/29/16 04/13/17 History [Sinemet] Fluticasone/Vilanterol Inhaler 1 puff INH HS 12/29/16 04/13/17 History [Breo Ellipta 100-25 mcg Inhaler] Guaifenesin/Dextromethorphan 10 ml PO Q4H PRN 12/29/16 04/13/17 History [Guaifenesin Dm Syrup] NIFEdipine [Nifedipine ER] 60 mg PO DAILY 12/29/16 04/13/17 History Ondansetron HCl [Zofran] 4 mg PO Q6H PRN 12/29/16 04/13/17 History Rivaroxaban [Xarelto] 20 mg PO DAILY 12/29/16 04/13/17 History Sertraline HCl [Zoloft] 50 mg PO DAILY 12/29/16 04/13/17 History Tramadol [Ultram] 50 mg PO Q8H PRN 12/29/16 04/13/17 History Triamterene/Hydrochlorothiazid 1 tab PO DAILY 12/29/16 04/13/17 History [Dyazide 37.5-25 Capsule] Zinc Oxide 1 applicatio TP PRN PRN 12/29/16 04/13/17 History cycloSPORINE [Restasis Multidose] 1 drop EACH EYE BID 12/29/16 04/13/17 History Hydrocortisone 2.5% Cream 1 applicatio RECTALLY BID PRN 04/13/17 04/13/17 History [Anusol-Hc 2.5% Cream] Peg 400/Hypromellose/Glycerin 1 drop OP BID 04/13/17 04/13/17 History [Artificial Tears Drops] Saliva Substitute Mouthwash 1 dose PO BID PRN 04/13/17 04/13/17 History [Biotene Dry Mouth Oral Rinse] Valbenazine Tosylate [Ingrezza] 80 mg PO DAILY 04/13/17 04/13/17 History cycloSPORINE [Restasis Multidose] 1 drops EACH EYE BID 04/13/17 04/13/17 History Allergies Allergy/AdvReac Type Severity Reaction Status Date / Time naproxen [From Aleve] Allergy Unknown Verified 04/13/17 10:18 Penicillins Allergy Unknown Verified 04/13/17 10:18 propoxyphene Allergy Unknown Verified 04/13/17 10:18 Sulfa (Sulfonamide Allergy Unknown Verified 04/13/17 10:18 Antibiotics) codeine AdvReac Unknown NAUSEA AND Verified 04/13/17 10:18 VOMITING ibuprofen AdvReac Unknown HEARTBURN Verified 04/13/17 10:18 meloxicam AdvReac Unknown HEARTBURN Verified 04/13/17 10:18 sertraline HCl Allergy Unknown Uncoded 03/11/17 09:56 Exam Vital Signs: Temperature 101.2 F H 04/13/17 13:21 Pulse Rate 71 04/13/17 13:21 Respiratory Rate 16 04/13/17 13:21 Blood Pressure 145/58 H 04/13/17 13:21 Pulse Oximetry 96 04/13/17 13:21 Telemetry Rhythm: Sinus Rhythm Height/Weight/BMI: Height 1.57 m Weight 91.5 kg Body Mass Index 36.8 - Constitutional Present: mild distress, well nourished, well developed, obese, cooperative. Absent: combative, agitated - Routine HEENT Exam Head: Present: normocephalic, atraumatic Eye: Present: EOMI, PERRL ENT: Present: mucous membranes moist - Routine Neck Exam Present: supple, trachea midline - Routine Chest/Breast/Axilla Exam Chest wall: Present: pacemaker. Absent: tenderness - Routine Respiratory Exam Present: dyspnea, decreased breath sounds, wheezes (faint ), diminished air movement - Routine Cardiovascular Exam Present: RRR, no murmur - Routine Abdominal Exam Present: soft, non distended, non tender. Absent: normoactive bowel sounds ( Decreased ), guarding - Routine Extremities Exam Present: edema (+1 BLE ), pulses intact. Absent: cyanosis, clubbing - Routine Skin Exam Present: dry, warm. Absent: mottling - Routine Neurological Exam Present: alert, oriented X3, CN II-XII intact, moving all extremities, vision grossly intact, hearing grossly intact, normal speech. Absent: motor deficit, altered mental status - Routine Psychiatric Exam Present: normal affect, normal thought process, cooperative. Absent: anxious, agitated Results - Labs CBC & Chem 7: 04/13/17 10:36 04/13/17 10:37 Assessment and Plan (1) UTI (urinary tract infection) Current visit: Yes Status: Acute (2) Febrile illness Current visit: Yes Status: Acute Assessment and Plan: Assessment UTI - concern for resistant organism base on prior 2 urinary cultures. Febrile process Concern for developing sepsis Hypoxemia/Acute respiratory insufficiency - O2 sats in mid 80's on presentation Asthma Paroxysmal a fib Anticoagulation with Xarelto secondary to paroxysmal afib HTN HDL Parkinson's Disease Gait instability OA Fibromyalgia Osteoporosis Chronic constipation Depression/anxiety Obesity with BMI 36.9 Plan Inpatient admission to [facility] under the care of Dr Gibson. Anticipate greater than 2 midnights of care needed. Initiate Invanz 1 gram IV daily for urinary coverage based on prior urine cultures - check pending urine culture. Repeat lactate secondary to initial lactate 2.0. IVF of NS at 75cc/hr to help maintain hydration. Supplemental O2, weaning as able. Neb treatments of DuoNeb QID/q4prn and budesonide 0.5mg BID due to asthma and hypoxia. Check respiratory swab to check for other respiratory viruses (Influenza screen in ED negative). Continue home medications. Initiate SCD to help DVT prevention and to decrease LE edema; continue Xarelto. Recheck CBC in am due to shift. Will repeat BMP in am due to IVF use. Will recheck Procalcitonin in am due to infection. DNR as per her requests. Care to return to Dr Pollard at time of discharge from [facility]. Case discussed with ED provider. DVT Prophylaxis: SCD's, Xarelto Resuscitation Status: Do Not Resuscitate - Time spent with patient Time with patient PN: 70 minutes Hospital Course Summary Disclaimer: The visit summary below is not to be considered part of the above Progress Note. Hospital Course: 04/13/17 15:00 Assessment UTI - concern for resistant organism base on prior 2 urinary cultures. Febrile process Concern for developing sepsis Hypoxemia/Acute respiratory insufficiency - O2 sats in mid 80's on presentation Asthma Paroxysmal a fib Anticoagulation with Xarelto secondary to paroxysmal afib HTN HDL Parkinson's Disease Gait instability OA Fibromyalgia Osteoporosis Chronic constipation Depression/anxiety Obesity with BMI 36.9 Plan Inpatient admission to [facility] under the care of Dr Gibson. Anticipate greater than 2 midnights of care needed. Initiate Invanz 1 gram IV daily for urinary coverage based on prior urine cultures - check pending urine culture. Repeat lactate secondary to initial lactate 2.0. IVF of NS at 75cc/hr to help maintain hydration. Supplemental O2, weaning as able. Neb treatments of DuoNeb QID/q4prn and budesonide 0.5mg BID due to asthma and hypoxia. Check respiratory swab to check for other respiratory viruses (Influenza screen in ED negative). Continue home medications. Initiate SCD to help DVT prevention and to decrease LE edema; continue Xarelto. Recheck CBC in am due to shift. Will repeat BMP in am due to IVF use. Will recheck Procalcitonin in am due to infection. DNR as per her requests. Care to return to Dr Pollard at time of discharge from [facility].
[2017-04-13] MEDS: ALBUTEROL/IPRATROPIUM 2.5mg-0.5mg/3ml NEB AEROSOL SCH ×2 (15:04→19:39)
[2017-04-13] MEDS: GABAPENTIN 600 MG TABLET PO SCH ×2 (15:52→21:53)
[2017-04-13] MEDS: TRAMADOL 50 MG TABLET PO SCH ×2 (15:52→21:51)
[2017-04-13] MEDS: PRAMIPEXOLE 1 MG TABLET PO SCH ×2 (18:05→21:53)
[2017-04-13] MEDS: SOTALOL 80 MG TABLET PO SCH (18:06)
[2017-04-13] MEDS: RIVAROXABAN 20 MG TABLET PO SCH (18:08)
[2017-04-13] MEDS: ACETAMINOPHEN 325 MG TABLET PO SCH ×2 (18:08→21:52)
[2017-04-13] MEDS: BUDESONIDE INH.SOLN 0.5mg/2ml NEB AEROSOL SCH (19:39)
[2017-04-13] MEDS ORDERED: CYCLOSPORINE EACH EYE SCH (21:00)
[2017-04-13] MEDS: CycloSPORINE 0.05% EYE DROPS 4ml EACH EYE SCH (21:53)
[2017-04-13] MEDS: ARTIFICIAL TEARS 15ml EACH EYE SCH (22:00)
[2017-04-14] MEDS: NS 1,000 ML IV SCH (02:52)
[2017-04-14] MEDS: SOTALOL 80 MG TABLET PO SCH ×2 (05:50→17:44)
[2017-04-14] MEDS: LORATADINE 10 MG TABLET PO SCH (05:50)
[2017-04-14] MEDS: OMEPRAZOLE 20 MG CAPSULE PO SCH (05:52)
[2017-04-14] MEDS: BUDESONIDE INH.SOLN 0.5mg/2ml NEB AEROSOL SCH ×2 (06:49→18:57)
[2017-04-14] MEDS: ALBUTEROL/IPRATROPIUM 2.5mg-0.5mg/3ml NEB AEROSOL SCH ×4 (06:49→18:57)
[2017-04-14] MEDS: CycloSPORINE 0.05% EYE DROPS 4ml EACH EYE SCH ×2 (08:50→23:12)
[2017-04-14] MEDS: ACETAMINOPHEN 325 MG TABLET PO SCH ×4 (08:51→23:08)
[2017-04-14] MEDS: TRAMADOL 50 MG TABLET PO SCH ×3 (08:51→23:07)
[2017-04-14] MEDS: ARTIFICIAL TEARS 15ml EACH EYE SCH ×2 (08:51→23:05)
[2017-04-14] MEDS: HYOSCYAMINE 0.125 MG ORAL TABLET PO SCH (08:52)
[2017-04-14] MEDS: SERTRALINE 100 MG TABLET PO SCH (08:53)
[2017-04-14] MEDS: SERTRALINE 50 MG TABLET PO SCH (08:53)
[2017-04-14] MEDS: GABAPENTIN 600 MG TABLET PO SCH ×3 (08:53→23:09)
[2017-04-14] MEDS: POLYETHYL GLYCOL 3350 17gm PACKET PO SCH ×2 (08:53→08:58)
[2017-04-14] MEDS: DOXAZOSIN 4 MG TABLET PO SCH (08:53)
[2017-04-14] MEDS: MULTI-VITAMIN + MINERAL TABLET PO SCH (08:53)
[2017-04-14] MEDS: PRAMIPEXOLE 1 MG TABLET PO SCH ×4 (08:53→23:07)
[2017-04-14] MEDS: TRIAMTERENE/HCTZ 37.5 MG-25 MG TABLET PO SCH (08:53)
[2017-04-14] MEDS: ERTAPENEM 1 G in NS 100 ML IV SCH (08:59)
--- NOTE | 2017-04-14 09:44 | Progress Note ---
<Theresa Chi D - Last Filed: 04/14/17 10:44> - Date 04/14/17 Subjective: Kiesha is still very weak; when she stands up, she states she is hunched over. She has been afebrile. She denies pain or SOA. She ate well for breakfast and denies any abdominal pain or nausea. She complains of "gas" today. Objective Vital signs: Temperature 97.5 F 04/14/17 07:34 Pulse Rate 60 04/14/17 07:34 Respiratory Rate 18 04/14/17 07:34 Blood Pressure 156/56 H 04/14/17 07:34 Pulse Oximetry 95 04/14/17 07:34 Height/Weight/BMI: Height 1.57 m Weight 93.7 kg Body Mass Index 36.8 - Constitutional Present: no acute distress, well nourished, well developed, obese - Routine HEENT Exam Head: Present: normocephalic Eye: Absent: conjunctival icterus ENT: Present: oropharynx clear - Routine Respiratory Exam Present: decreased breath sounds Comments: slightly coarse - Routine Cardiovascular Exam Present: RRR, S1, S2 - Routine Abdominal Exam Present: normoactive bowel sounds, non tender - Routine Extremities Exam Present: edema (trace BLE) - Routine Skin Exam Present: intact, dry, warm - Routine Neurological Exam Present: alert, oriented X3, normal speech, tremors - Routine Psychiatric Exam Present: normal affect, normal thought process, cooperative Results - Labs CBC & Chem 7: 04/14/17 03:59 04/14/17 03:59 Assessment and Plan (1) UTI (urinary tract infection) Current visit: Yes Status: Acute (2) Febrile illness Current visit: Yes Status: Acute Assessment and Plan: Assessment UTI - concern for resistant organism base on prior 2 urinary cultures. Febrile process Concern for developing sepsis Hypoxemia/Acute respiratory insufficiency - O2 sats in mid 80's on presentation Hypokalemia (Not POA) Microcytic anemia Asthma Paroxysmal a fib Anticoagulation with Xarelto secondary to paroxysmal afib HTN HDL Parkinson's Disease Gait instability OA Fibromyalgia Osteoporosis Chronic constipation Depression/anxiety Obesity with BMI 36.9 Plan Gorman was inserted on admission (per RN, rationale was for "overactive bladder" ) - discussed discontinuation with patient and RN. Continue Invanz for UTI - UC pending. Consider ID consult. Hypokalemia - DC IVF (oral intake improving) and give KDur. Anemia - hgb down to 9 - check iron studies. Hypoxia - O2 needs decreasing; continue weaning off oxygen. DVT Prophylaxis: Xarelto GI Prophylaxis: other (omeprazole) Resuscitation Status: Do Not Resuscitate Hospital Course Summary Disclaimer: The visit summary below is not to be considered part of the above Progress Note. Hospital Course: 04/13/17 15:00 Assessment UTI - concern for resistant organism base on prior 2 urinary cultures. Febrile process Concern for developing sepsis Hypoxemia/Acute respiratory insufficiency - O2 sats in mid 80's on presentation Asthma Paroxysmal a fib Anticoagulation with Xarelto secondary to paroxysmal afib HTN HDL Parkinson's Disease Gait instability OA Fibromyalgia Osteoporosis Chronic constipation Depression/anxiety Obesity with BMI 36.9 Plan Inpatient admission to [facility] under the care of Dr Gibson. Anticipate greater than 2 midnights of care needed. Initiate Invanz 1 gram IV daily for urinary coverage based on prior urine cultures - check pending urine culture. Repeat lactate secondary to initial lactate 2.0. IVF of NS at 75cc/hr to help maintain hydration. Supplemental O2, weaning as able. Neb treatments of DuoNeb QID/q4prn and budesonide 0.5mg BID due to asthma and hypoxia. Check respiratory swab to check for other respiratory viruses (Influenza screen in ED negative). Continue home medications. Initiate SCD to help DVT prevention and to decrease LE edema; continue Xarelto. Recheck CBC in am due to shift. Will repeat BMP in am due to IVF use. Will recheck Procalcitonin in am due to infection. DNR as per her requests. Care to return to Dr Pollard at time of discharge from [facility]. 04/14/17 Gorman was inserted on admission (per RN, rationale was for "overactive bladder" ) - discussed discontinuation with patient and RN. Continue Invanz for UTI - UC pending. Consider ID consult. Hypokalemia - DC IVF (oral intake improving) and give KDur. Anemia - hgb down to 9 - check iron studies. Hypoxia - O2 needs decreasing; continue weaning off oxygen. <Nimesh Gibson - Last Filed: 04/14/17 14:52> - Date 04/14/17 Objective Vital signs: Temperature 97.5 F 04/14/17 14:30 Pulse Rate 61 04/14/17 14:30 Respiratory Rate 20 04/14/17 14:30 Blood Pressure 124/73 04/14/17 14:30 Pulse Oximetry 91 04/14/17 14:30 Height/Weight/BMI: Height 1.57 m Weight 93.7 kg Body Mass Index 36.8 Results - Labs CBC & Chem 7: 04/14/17 03:59 04/14/17 03:59 Assessment and Plan (1) UTI (urinary tract infection) Current visit: Yes Status: Acute (2) Febrile illness Current visit: Yes Status: Acute Assessment and Plan: Assessment UTI - concern for resistant organism base on prior 2 urinary cultures. Febrile process Concern for developing sepsis Hypoxemia/Acute respiratory insufficiency - O2 sats in mid 80's on presentation Hypokalemia (Not POA) Microcytic anemia Asthma Paroxysmal a fib Anticoagulation with Xarelto secondary to paroxysmal afib HTN HDL Parkinson's Disease Gait instability OA Fibromyalgia Osteoporosis Chronic constipation Depression/anxiety Obesity with BMI 36.9 Have independently interviewed and examined pt. Chart reviewed. Case discussed with CM and my [employer]. Care plan developed with my supervision; agree with above. Doing okay. Breathing feels short-but reports always feels short of breath. Some cough. Not needing O2. Eating better. Notes some ab discomfort and gas. Still feels weak and tired. Lungs: decreased, no distress CV: regular AB: soft nt/nd BS decreased MSE: awake alert appropriate Plan: Continue Invanz - currently no growth on UA. D/C Gorman cath. D/C IVF. Replace potassium-magnesium normal. PT/OT to help increase functional status. Monitor O2 sats. Recheck CBC and BMP in am. Continue with supportive care. Time spent with patient care 25 minutes. - Time spent with patient Time with patient PN: 25 minutes Hospital Course Summary Disclaimer: The visit summary below is not to be considered part of the above Progress Note.
[2017-04-14] MEDS ORDERED: PNEUMOCOCCAL 13 VACCINE 0.5ml INJECTION IM ONE (11:04)
[2017-04-14] MEDS ORDERED: INFLUENZA VAC High Dose 2017-18 (Fluzone HD*) (>=65yo) 0.5ml IM ONE (11:04)
[2017-04-14] MEDS: VALBENAZINE TOSYLATE 80 MG PO SCH (12:20)
[2017-04-14] MEDS ORDERED: FALL RISK - PHARMACY CONSULT XX ONE (13:32)
[2017-04-14] MEDS: RIVAROXABAN 20 MG TABLET PO SCH (17:44)
[2017-04-14] MEDS: LOVASTATIN 20 MG TABLET PO SCH (23:09)
[2017-04-15] MEDS: SOTALOL 80 MG TABLET PO SCH ×2 (06:14→16:57)
[2017-04-15] MEDS: OMEPRAZOLE 20 MG CAPSULE PO SCH (06:14)
[2017-04-15] MEDS: LORATADINE 10 MG TABLET PO SCH (06:15)
[2017-04-15] MEDS: ALBUTEROL/IPRATROPIUM 2.5mg-0.5mg/3ml NEB AEROSOL SCH ×4 (07:39→18:59)
[2017-04-15] MEDS: BUDESONIDE INH.SOLN 0.5mg/2ml NEB AEROSOL SCH ×2 (07:39→18:59)
[2017-04-15] MEDS: TRAMADOL 50 MG TABLET PO SCH ×3 (09:30→20:28)
[2017-04-15] MEDS: ARTIFICIAL TEARS 15ml EACH EYE SCH ×2 (09:31→21:59)
[2017-04-15] MEDS: ACETAMINOPHEN 325 MG TABLET PO SCH ×4 (09:31→20:28)
[2017-04-15] MEDS: TRIAMTERENE/HCTZ 37.5 MG-25 MG TABLET PO SCH (09:32)
[2017-04-15] MEDS: DOXAZOSIN 4 MG TABLET PO SCH (09:32)
[2017-04-15] MEDS: SERTRALINE 100 MG TABLET PO SCH (09:32)
[2017-04-15] MEDS: MULTI-VITAMIN + MINERAL TABLET PO SCH (09:32)
[2017-04-15] MEDS: HYOSCYAMINE 0.125 MG ORAL TABLET PO SCH (09:32)
[2017-04-15] MEDS: POLYETHYL GLYCOL 3350 17gm PACKET PO SCH (09:33)
[2017-04-15] MEDS: PRAMIPEXOLE 1 MG TABLET PO SCH ×4 (09:33→20:27)
[2017-04-15] MEDS: ERTAPENEM 1 G in NS 100 ML IV SCH (09:33)
[2017-04-15] MEDS: GABAPENTIN 600 MG TABLET PO SCH ×3 (09:33→20:28)
[2017-04-15] MEDS: SERTRALINE 50 MG TABLET PO SCH (09:33)
[2017-04-15] MEDS: VALBENAZINE TOSYLATE 80 MG PO SCH (09:34)
--- NOTE | 2017-04-15 11:05 | Progress Note ---
<Thereas Chi D - Last Filed: 04/15/17 11:02> - Date 04/15/17 Subjective: Kiesha is feeling better this morning. She reports that she slept well last night. She denies any chest pain, SOA, or dizziness. She still c/o "gas" but had a BM this am. She denies n/v and her appetite has been good. When she voided this morning her urine was red colored. Objective Vital signs: Temperature 98.7 F 04/15/17 08:00 Pulse Rate 60 04/15/17 08:00 Respiratory Rate 20 04/15/17 08:00 Blood Pressure 160/69 H 04/15/17 08:00 Pulse Oximetry 94 04/15/17 08:00 Height/Weight/BMI: Height 1.57 m Weight 93.7 kg Body Mass Index 36.8 - Constitutional Present: no acute distress, well nourished, well developed - Routine HEENT Exam Eye: Absent: conjunctival icterus, scleral injection ENT: Present: oropharynx clear - Routine Respiratory Exam Present: CTA bilaterally - Routine Cardiovascular Exam Present: RRR, S1, S2 - Routine Abdominal Exam Present: soft, normoactive bowel sounds (hyperactive), non distended, non tender - Routine Extremities Exam Present: no edema, pulses intact - Routine Skin Exam Present: dry, warm - Routine Neurological Exam Present: alert, oriented X3, normal speech, tremors - Routine Psychiatric Exam Present: normal affect, normal thought process, cooperative Results - Labs CBC & Chem 7: 04/15/17 03:53 04/15/17 03:53 Assessment and Plan (1) UTI (urinary tract infection) Current visit: Yes Status: Acute (2) Febrile illness Current visit: Yes Status: Acute Assessment and Plan: Assessment UTI - ESBL positive E. coli Febrile process Concern for developing sepsis Hypoxemia/Acute respiratory insufficiency - O2 sats in mid 80's on presentation - resolved Hypokalemia (Not POA) - resolved Microcytic anemia Asthma Paroxysmal a fib Anticoagulation with Xarelto secondary to paroxysmal afib HTN HDL Parkinson's Disease Gait instability OA Fibromyalgia Osteoporosis Chronic constipation Depression/anxiety Obesity with BMI 36.9 Plan Urine culture shows ESBL positive E. coli - continue ertapenem (2 prior cultures also showed sensitivity to ertapenem). Pt is allergic to sulfa; nitrofurantoin could be a possibility but this is risky with her resistance patterns. Consider ID consultation. Hypokalemia - resolved. K 3.9. Hypoxia resolved - maintaining sats on room air. Anemia is stable; iron studies pending. DVT Prophylaxis: Xarelto GI Prophylaxis: other (omeprazole) Resuscitation Status: Do Not Resuscitate Hospital Course Summary Disclaimer: The visit summary below is not to be considered part of the above Progress Note. Hospital Course: 04/13/17 15:00 Assessment UTI - concern for resistant organism base on prior 2 urinary cultures. Febrile process Concern for developing sepsis Hypoxemia/Acute respiratory insufficiency - O2 sats in mid 80's on presentation Asthma Paroxysmal a fib Anticoagulation with Xarelto secondary to paroxysmal afib HTN HDL Parkinson's Disease Gait instability OA Fibromyalgia Osteoporosis Chronic constipation Depression/anxiety Obesity with BMI 36.9 Plan Inpatient admission to [facility] under the care of Dr Gibson. Anticipate greater than 2 midnights of care needed. Initiate Invanz 1 gram IV daily for urinary coverage based on prior urine cultures - check pending urine culture. Repeat lactate secondary to initial lactate 2.0. IVF of NS at 75cc/hr to help maintain hydration. Supplemental O2, weaning as able. Neb treatments of DuoNeb QID/q4prn and budesonide 0.5mg BID due to asthma and hypoxia. Check respiratory swab to check for other respiratory viruses (Influenza screen in ED negative). Continue home medications. Initiate SCD to help DVT prevention and to decrease LE edema; continue Xarelto. Recheck CBC in am due to shift. Will repeat BMP in am due to IVF use. Will recheck Procalcitonin in am due to infection. DNR as per her requests. Care to return to Dr Pollard at time of discharge from [facility]. 04/14/17 Gorman was inserted on admission (per RN, rationale was for "overactive bladder" ) - discussed discontinuation with patient and RN. Continue Invanz for UTI - UC pending. Consider ID consult. Hypokalemia - DC IVF (oral intake improving) and give KDur. Anemia - hgb down to 9 - check iron studies. Hypoxia - O2 needs decreasing; continue weaning off oxygen. 04/15/17 Urine culture shows ESBL positive E. coli - continue ertapenem (2 prior cultures also showed sensitivity to ertapenem). Pt is allergic to sulfa; nitrofurantoin could be a possibility but this is risky with her resistance patterns. Consider ID consultation. Hypokalemia - resolved. K 3.9. Hypoxia resolved - maintaining sats on room air. Anemia is stable; iron studies pending. <Nimesh Gibson D - Last Filed: 04/15/17 17:22> - Date 04/15/17 Objective Vital signs: Temperature 97.8 F 04/15/17 16:00 Pulse Rate 70 04/15/17 16:57 Respiratory Rate 18 04/15/17 16:00 Blood Pressure 153/70 H 04/15/17 16:00 Pulse Oximetry 92 04/15/17 16:00 Height/Weight/BMI: Height 1.57 m Weight 93 kg Body Mass Index 36.8 Results - Labs CBC & Chem 7: 04/15/17 03:53 04/15/17 03:53 Assessment and Plan (1) UTI (urinary tract infection) Current visit: Yes Status: Acute (2) Febrile illness Current visit: Yes Status: Acute Assessment and Plan: Assessment UTI - ESBL positive E. coli Febrile process Concern for developing sepsis Hypoxemia/Acute respiratory insufficiency - O2 sats in mid 80's on presentation - resolved Hypokalemia (Not POA) - resolved Microcytic anemia Asthma Paroxysmal a fib Anticoagulation with Xarelto secondary to paroxysmal afib HTN HDL Parkinson's Disease Gait instability OA Fibromyalgia Osteoporosis Chronic constipation Depression/anxiety Obesity with BMI 36.9 Have independently interviewed and examined pt. Chart reviewed. Case discussed with CM and my HOUSEKEEPING ATTENDANT. Care plan developed with my supervision; agree with above. Doing okay today. No f/c. Breathing well. Appetite stable. Bowels moving. Feels weak-likes the therapists at home more than the therapists her. Urinating well but did note some blood in her urine this am. Lungs: decreased, no distress CV: regular AB: soft nt/nd MSE: awake alert appropriate Plan: Urine culture showing ESBL Ecoli - continue with ertapenem for treatment ( organism sensitive to ertapenem). Encourage activities and movement to help strength. Respiratory status stable - continue with breathing treatment, watch for need for O2. Will recheck CBC and BMP in am. Clinically improving. Hospital Course Summary Disclaimer: The visit summary below is not to be considered part of the above Progress Note.
[2017-04-15] MEDS: CycloSPORINE 0.05% EYE DROPS 4ml EACH EYE SCH ×2 (11:18→20:28)
[2017-04-15] MEDS: RIVAROXABAN 20 MG TABLET PO SCH (16:59)
[2017-04-15] MEDS: LOVASTATIN 20 MG TABLET PO SCH (20:27)
[2017-04-15] MEDS: SALINE FLUSH 10ml SYRINGE IVF PRN (20:29)
[2017-04-16] MEDS: OMEPRAZOLE 20 MG CAPSULE PO SCH (06:34)
[2017-04-16] MEDS: SOTALOL 80 MG TABLET PO SCH ×2 (06:34→18:40)
[2017-04-16] MEDS: LORATADINE 10 MG TABLET PO SCH (06:35)
[2017-04-16] MEDS: BUDESONIDE INH.SOLN 0.5mg/2ml NEB AEROSOL SCH ×2 (07:30→19:33)
[2017-04-16] MEDS: ALBUTEROL/IPRATROPIUM 2.5mg-0.5mg/3ml NEB AEROSOL SCH ×4 (07:30→19:33)
[2017-04-16] MEDS: PRAMIPEXOLE 1 MG TABLET PO SCH ×4 (08:57→20:57)
[2017-04-16] MEDS: CycloSPORINE 0.05% EYE DROPS 4ml EACH EYE SCH ×2 (08:57→21:14)
[2017-04-16] MEDS: ACETAMINOPHEN 325 MG TABLET PO SCH ×4 (08:57→20:58)
[2017-04-16] MEDS: TRIAMTERENE/HCTZ 37.5 MG-25 MG TABLET PO SCH (08:57)
[2017-04-16] MEDS: HYOSCYAMINE 0.125 MG ORAL TABLET PO SCH (08:57)
[2017-04-16] MEDS: TRAMADOL 50 MG TABLET PO SCH ×3 (08:58→20:58)
[2017-04-16] MEDS: SERTRALINE 50 MG TABLET PO SCH (08:58)
[2017-04-16] MEDS: GABAPENTIN 600 MG TABLET PO SCH ×3 (08:59→20:57)
[2017-04-16] MEDS: MULTI-VITAMIN + MINERAL TABLET PO SCH (08:59)
[2017-04-16] MEDS: DOXAZOSIN 4 MG TABLET PO SCH (08:59)
[2017-04-16] MEDS: POLYETHYL GLYCOL 3350 17gm PACKET PO SCH (09:00)
[2017-04-16] MEDS: VALBENAZINE TOSYLATE 80 MG PO SCH (09:00)
[2017-04-16] MEDS: SERTRALINE 100 MG TABLET PO SCH (09:00)
[2017-04-16] MEDS: ARTIFICIAL TEARS 15ml EACH EYE SCH ×2 (09:00→21:15)
[2017-04-16] MEDS: ERTAPENEM 1 G in NS 100 ML IV SCH (09:03)
--- NOTE | 2017-04-16 11:05 | Progress Note ---
<Maria Esther Amor V - Last Filed: 04/16/17 10:53> - Date 04/16/17 Subjective: Mrs Paul is seen this morning in follow up. She reports that she has a bath this morning and has been cold since then. She is currently on room air without respiratory distress. Denies abdominal pain or nausea. No difficulty with urination. Appetite is good. Objective Vital signs: Temperature 96.6 F L 04/16/17 08:51 Pulse Rate 60 04/16/17 08:51 Respiratory Rate 18 04/16/17 08:51 Blood Pressure 163/79 H 04/16/17 08:51 Pulse Oximetry 94 04/16/17 08:51 Height/Weight/BMI: Height 1.57 m Weight 92 kg Body Mass Index 36.8 - Constitutional Present: no acute distress, well nourished, well developed - Routine HEENT Exam Eye: Present: EOMI ENT: Present: mucous membranes moist, dentition normal - Routine Respiratory Exam Absent: wheezes Comments: Diminished - Routine Cardiovascular Exam Present: RRR, S1, S2. Absent: murmur - Routine Abdominal Exam Present: soft, normoactive bowel sounds, non distended. Absent: tenderness - Routine Extremities Exam Present: full ROM, pulses intact - Routine Skin Exam Present: intact, dry, warm - Routine Neurological Exam Present: alert, oriented X3, CN II-XII intact, moving all extremities - Routine Lymphatic Exam Lymphatic: Absent: adenopathy - Routine Psychiatric Exam Present: normal affect, cooperative Results - Labs CBC & Chem 7: 04/16/17 04:42 04/16/17 04:42 Assessment and Plan (1) UTI (urinary tract infection) Current visit: Yes Status: Acute (2) Febrile illness Current visit: Yes Status: Acute Assessment and Plan: Assessment UTI - ESBL positive E. coli Febrile process Concern for developing sepsis Hypoxemia/Acute respiratory insufficiency - O2 sats in mid 80's on presentation - resolved Hypokalemia (Not POA) - resolved Microcytic anemia Asthma Paroxysmal a fib Anticoagulation with Xarelto secondary to paroxysmal afib HTN HDL Parkinson's Disease Gait instability OA Fibromyalgia Osteoporosis Chronic constipation Depression/anxiety Obesity with BMI 36.9 Plan Overall clinically Kiesha is doing better. Continues on room air without distress. Bowels are moving and appetite is good. Continue on Ertapenem which is sensitive to ESBL E-Coli UTI. Will likely need a 7 today course- through 04/21. Treatment options are limited given allergies and recement infections Will speak with CM regarding potential to return to [facility] with IV Ertapenem daily. Hospital Course Summary Disclaimer: The visit summary below is not to be considered part of the above Progress Note. Hospital Course: 04/13/17 15:00 Assessment UTI - concern for resistant organism base on prior 2 urinary cultures. Febrile process Concern for developing sepsis Hypoxemia/Acute respiratory insufficiency - O2 sats in mid 80's on presentation Asthma Paroxysmal a fib Anticoagulation with Xarelto secondary to paroxysmal afib HTN HDL Parkinson's Disease Gait instability OA Fibromyalgia Osteoporosis Chronic constipation Depression/anxiety Obesity with BMI 36.9 Plan Inpatient admission to [facility] under the care of Dr Gibson. Anticipate greater than 2 midnights of care needed. Initiate Invanz 1 gram IV daily for urinary coverage based on prior urine cultures - check pending urine culture. Repeat lactate secondary to initial lactate 2.0. IVF of NS at 75cc/hr to help maintain hydration. Supplemental O2, weaning as able. Neb treatments of DuoNeb QID/q4prn and budesonide 0.5mg BID due to asthma and hypoxia. Check respiratory swab to check for other respiratory viruses (Influenza screen in ED negative). Continue home medications. Initiate SCD to help DVT prevention and to decrease LE edema; continue Xarelto. Recheck CBC in am due to shift. Will repeat BMP in am due to IVF use. Will recheck Procalcitonin in am due to infection. DNR as per her requests. Care to return to Dr Pollard at time of discharge from [facility]. 04/14/17 Gorman was inserted on admission (per RN, rationale was for "overactive bladder" ) - discussed discontinuation with patient and RN. Continue Invanz for UTI - UC pending. Consider ID consult. Hypokalemia - DC IVF (oral intake improving) and give KDur. Anemia - hgb down to 9 - check iron studies. Hypoxia - O2 needs decreasing; continue weaning off oxygen. 04/15/17 Urine culture shows ESBL positive E. coli - continue ertapenem (2 prior cultures also showed sensitivity to ertapenem). Pt is allergic to sulfa; nitrofurantoin could be a possibility but this is risky with her resistance patterns. Consider ID consultation. Hypokalemia - resolved. K 3.9. Hypoxia resolved - maintaining sats on room air. Anemia is stable; iron studies pending. 04/16/17 On room air, Bowels are moving and appetite is good. Continue on Ertapenem which is sensitive to ESBL E-Coli UTI. Will likely need a 7 today course- through 04/21. Treatment options are limited given allergies and recement infections Will speak with CM regarding potential to return to [facility] with IV Ertapenem daily. <Nimesh Gibson D - Last Filed: 04/16/17 15:54> - Date 04/16/17 Objective Vital signs: Temperature 96.6 F L 04/16/17 08:51 Pulse Rate 60 04/16/17 08:51 Respiratory Rate 18 04/16/17 15:00 Blood Pressure 163/79 H 04/16/17 08:51 Pulse Oximetry 94 04/16/17 15:03 Height/Weight/BMI: Height 1.57 m Weight 92 kg Body Mass Index 36.8 Results - Labs CBC & Chem 7: 04/16/17 04:42 04/16/17 04:42 Assessment and Plan (1) UTI (urinary tract infection) Current visit: Yes Status: Acute (2) Febrile illness Current visit: Yes Status: Acute Assessment and Plan: Assessment UTI - ESBL positive E. coli Febrile process Concern for developing sepsis Hypoxemia/Acute respiratory insufficiency - O2 sats in mid 80's on presentation - resolved Hypokalemia (Not POA) - resolved Microcytic anemia Asthma Paroxysmal a fib Anticoagulation with Xarelto secondary to paroxysmal afib HTN HDL Parkinson's Disease Gait instability OA Fibromyalgia Osteoporosis Chronic constipation Depression/anxiety Obesity with BMI 36.9 Have independently interviewed and examined pt. Chart reviewed. Case discussed with CM and my MED AIDE. Care plan developed with my supervision; agree with above. Resting in bed this afternoon-feels cold and tired. Breathing doing well-no SOA or congested, but has slight cough. No pain with breathing. No nausea. Lungs: decreased, no distress CV: regular MSE: awake alert appropriate Plan: Iron level returned decreased-will have pharm give IV iron to help normalize this. Continue with ertapenem-will have CM check into possibility of IV antibiotics at her care facility. Overall doing well medically. Continue with supportive care. DVT Prophylaxis: Xarelto Resuscitation Status: Do Not Resuscitate - Time spent with patient Time with patient PN: 25 minutes Hospital Course Summary Disclaimer: The visit summary below is not to be considered part of the above Progress Note.
[2017-04-16] MEDS ORDERED: IRON - PHARMACY CONSULT MC ONE (15:30)
[2017-04-16] MEDS ORDERED: IRON DEXTRAN COMPLEX 100mg/2ml INJECTION IV ONE (15:45)
[2017-04-16] MEDS ORDERED: DiphenhydrAMINE 50 MG/ML INJECTION IVP ONE (16:33)
[2017-04-16] MEDS ORDERED: METHYLPREDNISOLONE SOD SUCC 125mg/2ml INJECTION IVP PRN (17:09)
[2017-04-16] MEDS ORDERED: EPINEPHrine 1mg/ml PF INJ AMP IM PRN (17:13)
[2017-04-16] MEDS: RIVAROXABAN 20 MG TABLET PO SCH (18:41)
[2017-04-16] MEDS: LOVASTATIN 20 MG TABLET PO SCH (20:57)
[2017-04-16] MEDS: SALINE FLUSH 10ml SYRINGE IVF PRN (21:15)
[2017-04-17] MEDS: OMEPRAZOLE 20 MG CAPSULE PO SCH (06:40)
[2017-04-17] MEDS: SOTALOL 80 MG TABLET PO SCH (06:40)
[2017-04-17] MEDS: LORATADINE 10 MG TABLET PO SCH (06:40)
[2017-04-17 08:13] VITALS: BP 152/69; PULSE 59; TEMP 97.2
[2017-04-17] MEDS: ALBUTEROL/IPRATROPIUM 2.5mg-0.5mg/3ml NEB AEROSOL SCH ×3 (08:13→15:29)
[2017-04-17] MEDS: BUDESONIDE INH.SOLN 0.5mg/2ml NEB AEROSOL SCH (08:13)
[2017-04-17] MEDS: ARTIFICIAL TEARS 15ml EACH EYE SCH (09:51)
[2017-04-17] MEDS: ACETAMINOPHEN 325 MG TABLET PO SCH ×2 (09:51→14:07)
[2017-04-17] MEDS: CycloSPORINE 0.05% EYE DROPS 4ml EACH EYE SCH (09:52)
[2017-04-17] MEDS: DOXAZOSIN 4 MG TABLET PO SCH (09:52)
[2017-04-17] MEDS: ERTAPENEM 1 G in NS 100 ML IV SCH (09:52)
[2017-04-17] MEDS: POLYETHYL GLYCOL 3350 17gm PACKET PO SCH (09:53)
[2017-04-17] MEDS: GABAPENTIN 600 MG TABLET PO SCH ×2 (09:53→15:14)
[2017-04-17] MEDS: MULTI-VITAMIN + MINERAL TABLET PO SCH (09:53)
[2017-04-17] MEDS: HYOSCYAMINE 0.125 MG ORAL TABLET PO SCH (09:53)
[2017-04-17] MEDS: PRAMIPEXOLE 1 MG TABLET PO SCH ×2 (09:54→14:07)
[2017-04-17] MEDS: SERTRALINE 100 MG TABLET PO SCH (09:55)
[2017-04-17] MEDS: TRIAMTERENE/HCTZ 37.5 MG-25 MG TABLET PO SCH (09:55)
[2017-04-17] MEDS: SERTRALINE 50 MG TABLET PO SCH (09:55)
[2017-04-17] MEDS: VALBENAZINE TOSYLATE 80 MG PO SCH (09:56)
[2017-04-17] MEDS: TRAMADOL 50 MG TABLET PO SCH ×2 (09:58→15:13)
--- NOTE | 2017-04-17 15:02 | Extended Care Facility Orders ---
Admission Orders Admit to:: Long Term Allergies/Adverse Reactions: Allergies naproxen [From Aleve] Allergy (Unknown, Verified 04/13/17 10:18) Penicillins Allergy (Unknown, Verified 04/13/17 10:18) propoxyphene Allergy (Unknown, Verified 04/13/17 10:18) Sulfa (Sulfonamide Antibiotics) Allergy (Unknown, Verified 04/13/17 10:18) codeine Adverse Reaction (Unknown, Verified 04/13/17 10:18) NAUSEA AND VOMITING ibuprofen Adverse Reaction (Unknown, Verified 04/13/17 10:18) HEARTBURN meloxicam Adverse Reaction (Unknown, Verified 04/13/17 10:18) HEARTBURN sertraline HCl Allergy (Unknown, Uncoded 03/11/17 09:56) Admitting Diagnosis: complicated uti, multiple antibiotic allergies Admitting Physician: Ct Shelley MD Attending Physician: Ct Shelley MD Code Status: Do Not Resuscitate Anticiapted Length of Stay: 30 days or less Rehab Potential: fair Rehab Prognosis: fair Diet: Regular diet Wound/Incision Care: Not applicable May use Facility Protocol or Standing Orders: Yes May have flu vaccine: Yes Evaluations/Treatment: PT, OT, as needed Long Term Certification: I certify that SNF services are required to be given on an Inpatient basis because of the patients need for custodial care on a continuing basis for the condition(s) for which he/she received inpatient hospital services prior to his/her transfer to the SNF. SNF inpatient care is necessary for the following reasons Indication for Long Term: Med Admininistration - Additional Information Resident is Aware of Diagnosis: Yes Referrals: Peter Pollard MD [Family Provider] - 1 Week
--- NOTE | 2017-04-17 15:09 | Discharge Summary ---
Discharge Information Date of admission: 04/13/17 12:38 Anticipated date of discharge: 04/17/17 Attending Physician: Ct Shelley MD Primary care physician: Peter Pollard MD Consults: 04/15/17 09:30 Doctor [Physician Consult] [CONS] Routine Consulting Provider: Joe Redd Reason For Exam: continued care Ordering Provider has Notified Card Cutter Helper: Yes - Discharge Diagnosis (1) UTI (urinary tract infection) Status: Acute (2) Febrile illness Status: Acute UTI - ESBL positive E. coli Febrile process Concern for developing sepsis Hypoxemia/Acute respiratory insufficiency - O2 sats in mid 80's on presentation - resolved Hypokalemia (Not POA) - resolved Microcytic anemia Asthma Paroxysmal a fib Anticoagulation with Xarelto secondary to paroxysmal afib HTN HDL Parkinson's Disease Gait instability OA Fibromyalgia Osteoporosis Chronic constipation Depression/anxiety Obesity with BMI 36.9 - Procedures Procedures: none - Laboratory Labs: 04/17/17 05:02 04/17/17 05:02 Laboratory Tests 04/13/17 04/13/17 04/13/17 10:36 10:36 10:37 WBC 10.7 Hgb 11.2 L Plt Count 174 Neutrophils % (Manual) 86.0 H Band Neutrophils % 3.0 Iron TIBC % Saturation Total Bilirubin 0.60 Icterus Index < 2 AST 25 ALT 20 Alkaline Phosphatase 44 Total Protein 7.3 Albumin 4.0 Globulin 3.3 Albumin/Globulin Ratio 1.2 Prealbumin Plasma Lactate 2.0 Procalcitonin < 0.05 Ur Collection Type Urine Color Urine Clarity Urine pH Ur Specific [place] Urine Protein Urine Glucose (UA) Urine Ketones Urine Occult Blood Urine Nitrate Urine Bilirubin Urine Urobilinogen Ur Leukocyte Esterase Urine RBC Urine WBC Urine Bacteria Ur Culture Indicated? Adenovirus (PCR) B.parapertussis DNA PCR C. pneumoniae DNA (PCR) Coronavirus OC43 (PCR) Coronavirus HKU1 (PCR) Coronavirus 229E (PCR) Coronavirus NL63 (PCR) Human Metapneumovir PCR Influenza Type A (PCR) Influenza Type B (PCR) M. pneumoniae (PCR) Parainfluenza 1 (PCR) Parainfluenza 2 (PCR) Parainfluenza 3 (PCR) Parainfluenza 4 (PCR) RSV (PCR) Entero/Rhino (PCR) 04/13/17 04/13/17 04/13/17 10:47 11:23 14:13 WBC Hgb Plt Count Neutrophils % (Manual) Band Neutrophils % Iron TIBC % Saturation Total Bilirubin Icterus Index AST ALT Alkaline Phosphatase Total Protein Albumin Globulin Albumin/Globulin Ratio Prealbumin Plasma Lactate 0.9 Procalcitonin Ur Collection Type Urine, catheter Urine Color Yellow Urine Clarity Sl cloudy Urine pH 6.5 Ur Specific [place] 1.015 Urine Protein Negative Urine Glucose (UA) Negative Urine Ketones Negative Urine Occult Blood Trace-intact Urine Nitrate Positive A Urine Bilirubin Negative Urine Urobilinogen 0.2 Ur Leukocyte Esterase Trace A Urine RBC None seen Urine WBC 10-20 H Urine Bacteria 4+ H Ur Culture Indicated? Cult reflexed &setup Adenovirus (PCR) B.parapertussis DNA PCR C. pneumoniae DNA (PCR) Coronavirus OC43 (PCR) Coronavirus HKU1 (PCR) Coronavirus 229E (PCR) Coronavirus NL63 (PCR) Human Metapneumovir PCR Influenza Type A (PCR) Negative Influenza Type B (PCR) Negative M. pneumoniae (PCR) Parainfluenza 1 (PCR) Parainfluenza 2 (PCR) Parainfluenza 3 (PCR) Parainfluenza 4 (PCR) RSV (PCR) Entero/Rhino (PCR) 04/13/17 04/14/17 04/15/17 14:21 03:59 03:53 WBC Hgb Plt Count Neutrophils % (Manual) Band Neutrophils % Iron 15 L TIBC 324 % Saturation 5 L Total Bilirubin Icterus Index AST ALT Alkaline Phosphatase Total Protein Albumin Globulin Albumin/Globulin Ratio Prealbumin 18.7 Plasma Lactate Procalcitonin Ur Collection Type Urine Color Urine Clarity Urine pH Ur Specific [place] Urine Protein Urine Glucose (UA) Urine Ketones Urine Occult Blood Urine Nitrate Urine Bilirubin Urine Urobilinogen Ur Leukocyte Esterase Urine RBC Urine WBC Urine Bacteria Ur Culture Indicated? Adenovirus (PCR) Negative B.parapertussis DNA PCR Negative C. pneumoniae DNA (PCR) Negative Coronavirus OC43 (PCR) Negative Coronavirus HKU1 (PCR) Negative Coronavirus 229E (PCR) Negative Coronavirus NL63 (PCR) Negative Human Metapneumovir PCR Negative Influenza Type A (PCR) Negative Influenza Type B (PCR) Negative M. pneumoniae (PCR) Negative Parainfluenza 1 (PCR) Negative Parainfluenza 2 (PCR) Negative Parainfluenza 3 (PCR) Negative Parainfluenza 4 (PCR) Negative RSV (PCR) Negative Entero/Rhino (PCR) Negative - Microbiology Escherichia coli UTI greater than 100,000 colony-forming units with ESBL - Radiology Radiology: Type of Exam(s): XR chest 2V Reason for Exam(s): fever, crackles INDICATION: fever, crackles PROCEDURE: CHEST 2-VIEWS UPRIGHT (PA & LAT) Encounter: Initial Comparison: January 01, 2017 Findings: The lungs are stable in appearance without new focal airspace consolidation. There is no pleural effusion or pneumothorax. The heart size, pulmonary vascularity and mediastinal contours are unchanged. Left pacemaker. Hiatal hernia. IMPRESSION: Stable appearance of the chest without acute cardiopulmonary disease. . History of Present Illness HPI: 81 y/o female resides at [facility] presents to [facility] ED via EMS secondary to weakness and chills. Symptoms onset this morning about 3am. Started to feel very chilled-couldn't get warm. Yesterday was feeling okay-had a 'big day' in that she helped with a sale (has some worry that she 'over did it' yesterday. More tired and weak this morning. Not able to take her morning medications or have breakfast. Nursing found temp elevation (104) and low oxygen saturations ( mid 80s; will intermittently need O2 for her asthma, but not typically). Patient less interactive and responsive than baseline. Given Tylenol and EMS activated; transported to [facility] ED for evaluation. Initial temperature 103.1. Respiratory rate increased at 28. On 3L O2 with saturations 97%. While in ED, given IVF and rectal Tylenol which helped decrease temp and her chills. Lab showing WBC at upper limits of normal (10.7) with shift - 86% polys and 3% bands. Lactate 2.0. Blood pressure preserved. CXR obtained not showing acute infiltrate. Influenza screen negative. Urine showing evidence of urinary infection - reviewed her 2 prior urine culture reveals resistant E coli. With acute hypoxia/respiratory insufficiency, temp elevation, elevated lactate ( giving concern for developing sepsis) and underlying UTI with recent history of resistant organism decision was made to admit patient to inpatient status for treatment. Will need IV antibiotics to cover suspected resistant organism (no viable oral option available) and IVF for support, coupled with close monitoring due to concern for developing sepsis. Anticipated length of stay is thought to be greater than 2 midnights. Objective Vital signs: Temperature 97.2 F 04/17/17 08:10 Pulse Rate 59 L 04/17/17 08:10 Respiratory Rate 24 04/17/17 11:35 Blood Pressure 152/69 H 04/17/17 08:10 Pulse Oximetry 93 04/17/17 09:47 Height/Weight/BMI: Height 1.57 m Weight 89.2 kg Body Mass Index 36.8 Hospital Course This is a general summary of the patient's hospital course. For more details refer to the complete medical record. Hospital course: 04/13/17 15:00 Assessment UTI - concern for resistant organism base on prior 2 urinary cultures. Febrile process Concern for developing sepsis Hypoxemia/Acute respiratory insufficiency - O2 sats in mid 80's on presentation Asthma Paroxysmal a fib Anticoagulation with Xarelto secondary to paroxysmal afib HTN HDL Parkinson's Disease Gait instability OA Fibromyalgia Osteoporosis Chronic constipation Depression/anxiety Obesity with BMI 36.9 Plan Inpatient admission to [facility] under the care of Dr Gibson. Anticipate greater than 2 midnights of care needed. Initiate Invanz 1 gram IV daily for urinary coverage based on prior urine cultures - check pending urine culture. Repeat lactate secondary to initial lactate 2.0. IVF of NS at 75cc/hr to help maintain hydration. Supplemental O2, weaning as able. Neb treatments of DuoNeb QID/q4prn and budesonide 0.5mg BID due to asthma and hypoxia. Check respiratory swab to check for other respiratory viruses (Influenza screen in ED negative). Continue home medications. Initiate SCD to help DVT prevention and to decrease LE edema; continue Xarelto. Recheck CBC in am due to shift. Will repeat BMP in am due to IVF use. Will recheck Procalcitonin in am due to infection. DNR as per her requests. Care to return to Dr Pollard at time of discharge from [facility]. 04/14/17 Gorman was inserted on admission (per RN, rationale was for "overactive bladder" ) - discussed discontinuation with patient and RN. Continue Invanz for UTI - UC pending. Consider ID consult. Hypokalemia - DC IVF (oral intake improving) and give KDur. Anemia - hgb down to 9 - check iron studies. Hypoxia - O2 needs decreasing; continue weaning off oxygen. 04/15/17 Urine culture shows ESBL positive E. coli - continue ertapenem (2 prior cultures also showed sensitivity to ertapenem). Pt is allergic to sulfa; nitrofurantoin could be a possibility but this is risky with her resistance patterns. Consider ID consultation. Hypokalemia - resolved. K 3.9. Hypoxia resolved - maintaining sats on room air. Anemia is stable; iron studies pending. 04/16/17 On room air, Bowels are moving and appetite is good. Continue on Ertapenem which is sensitive to ESBL E-Coli UTI. Will likely need a 7 today course- through 04/21. Treatment options are limited given allergies and recement infections Will speak with CM regarding potential to return to [facility] with IV Ertapenem daily. 04/17/2017 The patient was seen today in her room. She is eating and drinking well. She denies any pain. She is on ertapenem once daily for ESBL UTI. She will need this once daily through 04/21/2017. She received a dose already today. Her fdc was called and they will be able to give ertapenem at the fdc. On exam she is alert and in no acute distress. She does have tremulousness of her jaw from Parkinson's. Chest is clear to auscultation. Cardiovascular reveals a regular rate and rhythm. Abdomen is soft and nontender. Extremities are free of edema. We will continue with ertapenem 1 g IV daily and last dose is 04/21/2017. The patient was given a test dose of IV iron but developed itching and IV iron was discontinued. She would likely benefit from oral iron and follow-up on iron level. Lab today is stable with BUN 18 and creatinine 0.7. White count is 6.1 and hemoglobin is 9.6. We'll discharge to her fdc with [facility]. She will continue IV antibiotics to finish a seven-day course. Recommend starting oral iron. Follow- up with Dr. Pollard in 1 week. PT and OT at [facility]. Greater than 30 minutes of time was spent on dismissal day. Time spent with patient: discharge greater than 30 minutes DVT Prophylaxis: Xarelto GI Prophylaxis: other Discharge Plan - Discharge Disposition Discharge Date: 04/17/17 Disposition: 03 To U Not [facility] (SNF) *Condition: Stable Reason For Visit (Visit label in EMR): complicated uti, multiple antibiotic allergies - Discharge Medications *Discharge Medications: New Ertapenem [INVanz] 1 g IV DAILY vial Saline Flush [IV Flush] 10 - 80 ml IVF PRN PRN #30 syringe PRN Reason: Flushing Ferrous Sulfate 325 mg PO DAILY #30 tablet Albuterol/Ipratropium [Duoneb] 3 ml AEROSOL Q4HR PRN each PRN Reason: Shortness Of Air Milk of Magnesia [Mom] 30 ml PO DAILY PRN udc PRN Reason: Constipation Continue Lovastatin 20 mg PO DAILY #0 Pramipexole Di-HCl [Mirapex] 1 tab PO QID #0 Multivit-Min/Iron/Folic/Lutein [Centrum Silver Women Tablet] 1 tab PO DAILY # 0 Acetaminophen 650 mg PO QID #0 tab Tramadol HCl 50 mg PO TID #0 tab Cholecalciferol (Vitamin D3) [Vitamin D3] 1,000 unit PO DAILY #0 Nystatin Cream [Mycostatin] 1 applicatio TOP DAILY #0 Guaifenesin/Dextromethorphan [Guaifenesin Dm Syrup] 10 ml PO Q4H PRN PRN Reason: Cough Ondansetron HCl [Zofran] 4 mg PO Q6H PRN PRN Reason: Nausea Tramadol [Ultram] 50 mg PO Q8H PRN PRN Reason: Pain Albuterol HFA Inhaler [Ventolin Hfa 90 mcg/actuation] 2 puff ORAL INH Q4H PRN PRN Reason: Shortness Of Air/Wheezing Fluticasone/Vilanterol Inhaler [Breo Ellipta 100-25 mcg Inhaler] 1 puff INH HS cycloSPORINE [Restasis Multidose] 1 drop EACH EYE BID Rivaroxaban [Xarelto] 20 mg PO DAILY NIFEdipine [Nifedipine ER] 60 mg PO DAILY Sertraline HCl [Zoloft] 50 mg PO DAILY Carbidopa/Levodopa 25/100 MG [Sinemet] 1 tab PO QID Zinc Oxide 1 applicatio TP PRN PRN PRN Reason: Prn Orders Sotalol [Betapace] 40 mg PO ACBID #30 tab Peg 400/Hypromellose/Glycerin [Artificial Tears Drops] 1 drop OP BID Hydrocortisone 2.5% Cream [Anusol-Hc 2.5% Cream] 1 applicatio RECTALLY BID PRN PRN Reason: Prn Orders cycloSPORINE [Restasis Multidose] 1 drops EACH EYE BID Valbenazine Tosylate [Ingrezza] 80 mg PO DAILY Doxazosin Mesylate [Cardura] 4 mg PO DAILY #0 Sertraline HCl 100 mg PO DAILY #0 Omeprazole 20 meq PO DAILY #0 Hyoscyamine Sulfate 0.125 mg PO DAILY #0 Gabapentin 600 mg PO TID #0 Polyethylene Glycol 3350 [Miralax] 17 g PO DAILY #0 Loratadine 10 mg PO DAILY #0 tab CALCIUM CARBONATE Chewable [Tums] 500 mg PO PRN PRN PRN Reason: Prn Orders Triamterene/Hydrochlorothiazid [Dyazide 37.5-25 Capsule] 1 tab PO DAILY Saliva Substitute Mouthwash [Biotene Dry Mouth Oral Rinse] 1 dose PO BID PRN PRN Reason: Dry Mouth Discontinued Acetaminophen 325 mg PO Q4H PRN PRN Reason: Pain No Action Bisacodyl Supp [Dulcolax] 10 mg RECTALLY DAILY PRN PRN Reason: Constipation - Discharge Packet/Instructions *Diet: regular diet *Activity: up with assist only *Pain Management/Treatment: acetaminophine and tramadol *Wound Care: Not applicable Additional Instructions: ertapenam IV antibiotic once daily starting 04/18/17 through 04/21/17. Routine iv care. *Expected Signs/Symptoms: mild fatigue *Notify Physician if: fever, frequent diarrhea, confusion, hypoxia, chest pain, rash *During Business Hours Contact: [facility] *After Business Hours Contact: Call [phone] Pollard *Pending Lab/Results: No Pending Lab - Referrals/Follow Up *Referrals/Follow Up: Peter Pollard MD [Family Provider] - 1 Week - Patient Handouts Patient Handouts: Urinary Tract Infection in Women (GEN)
[2017-04-17 15:32] VITALS: RESP 18; O2SAT 95
== END 2017-04-17 16:15 | DRG 690 ==
LOC: ED 10:04 → MED 12:38 → SUATTDRO 12:38 → MED 13:03
PROVIDERS: ADMIT Internal Medicine; ATTEND Internal Medicine